=== PATIENT | male | born 1955 | race Caucasian/White ===

== ENCOUNTER → 2017-12-18 06:17 | Outpatient (CLI) | payer OTHER, SELFPAY ==
--- NOTE | 2017-12-18 12:32 | STRESSREP_ITS ---
Stress Test Report Pharmacologic myocardial perfusion stress test. 61 year old and with a history of chest pain and hypertension. Stress protocol: Resting EKG demonstrates sinus bradycardia with a rate of 44 bpm. Resting blood pressure is 148/80 mmHg. 0.4 mg of regadenoson was infused per usual protocol. Continuous EKG monitoring was performed. At rest T-wave inversions were noted in leads II, III and aVF V5 and V6. During infusion T-wave inversions persisted. There were no ST changes however noted to suggest ischemia. The resting blood pressure is 148/80 with a final blood pressure 138/ 88 mmHg. Myocardial perfusion protocol.: 11.5 mCi of technetium 99m sestamibi was injected at rest. 0.4 mg regadenoson was infused per usual protocol. At peak infusion 34.0 mCi of technetium 99m sestamibi was injected. Stress images were obtained stress and rest images were reconstructed and compared in the short axis vertical long and horizontal long axis. Perfusion SPECT analysis: Review of the stress images demonstrate a mildly dilated cardiac silhouette size. The septum anterior wall and lateral wall appear to be well perfused. The basal to mid inferior wall and inferolateral wall have reduced perfusion. The resting images demonstrate improved perfusion in the distal inferolateral wall suggesting a moderate amount of ischemia. Possible fixed basal infarct is noted. Gated SPECT analysis Gated ejection fraction is 38%. Conclusion: Abnormal pharmacologic myocardial perfusion stress test with evidence of inferolateral ischemia. Basal inferior infarct noted. Cardiomyopathy present.
== END ==
PROVIDERS: Family Provider Family Medicine; PCP Family Medicine; Visit Provider Internal Medicine Cardiovascular Disease
DX: I25.10 Atherosclerotic heart disease of native coronary artery without angina pectoris (principal)
CPT/HCPCS: 78452; 93017; A9500; A4216; J2785

== ENCOUNTER 2018-02-20 14:00 | Day surgery (SDC) | payer OTHER, SELFPAY ==
[2018-02-20] VITALS (7 sets, daily range): BP systolic 103–139; BP diastolic 44–78; PULSE 51–54; RESP 16; TEMP 36.6–37.2; O2SAT 95–99; BMI 25.2
--- NOTE | 2018-02-20 14:15 | EKG12_ITS ---
Test Reason : PREOP Blood Pressure : / mmHG Vent. Rate : 055 BPM Atrial Rate : 055 BPM P-R Int : 150 ms QRS Dur : 112 ms QT Int : 484 ms P-R-T Axes : 015 -18 133 degrees QTc Int : 463 ms Sinus bradycardia Inferior infarct , age undetermined T wave abnormality, consider lateral ischemia Abnormal ECG No previous ECGs available Confirmed by WINIFRED FINE, DIPAK ([id number]), acquisition editor ANGELIKA BAKER ([id number]) on 02/22/2018 2:24:16 PM Referred By: JACY Confirmed By:DIPAK VITALE MD
[2018-02-20 14:33] LABS: Hematocrit 46.4 % (40-54); Hemoglobin 15.9 g/dl (13.0-16.5); Mean Corp Hgb Conc 34.3 g/gl (32-36); Mean Corpuscular Hgb 31.5 pg (27.0-32.0); Mean Corpuscular Volume 91.9 fL (80-94); Mean Platelet Vol. 9.8 fl (6.2-12.0); Platelet Count 310 K/mm3 (150-450); RBC Distribution Width CV 13.3 % (11.6-14.6); RBC Distribution Width SD 44.4 fl (35.1-43.9); Red Blood Count 5.05 M/mm3 (4.6-6.2); White Blood Count 12.8 K/mm3 (4.4-11.0)
[2018-02-20 14:34] LABS: Scan Indicated on CBC? Y/N NO
[2018-02-20 15:02] LABS: Anion Gap 6 (5-15); BUN 13 mg/dL (7-18); BUN/Creat Ratio 12.5 RATIO (10-20); Calcium,Total 9.6 mg/dL (8.5-10.1); Chloride 105 mmol/L (98-107); Creatinine, Serum 1.04 mg/dL (0.70-1.30); EST Glomerular Filtration Rate 77 mL/min (>60); Est Glom Filt Rate - Afr Amer 93 mL/min (>60); Glucose 101 mg/dL (74-106); Potassium 4.1 mmol/L (3.5-5.1); Sodium Level 140 mmol/L (136-145)
[2018-02-20] MEDS: Clindamycin 900 MG/50 ML BAG 75 MG IV (16:00)
--- NOTE | 2018-02-20 16:19 | PCM.OP.BLANK ---
Operative Report Operative report on Tripp Smith Operative procedure incision and drainage left peritonsillar abscess Operative diagnosis left peritonsillar abscess Operative diagnosis left peritonsillar abscess Anaesthesia ENDOTRACHEAL GENERAL. Procedure the patient was placed supine on the operating room table and after satisfactory endotracheal general anesthesia had been obtained sterile drapes were applied and the patient draped in the usual sterile manner. A Benji-Lavell mouth gag was placed in the oral cavity and the tongue retracted anteriorly. The hypopharynx was examined. A large left peritonsillar abscess was identified. The uvula was noted to be deviated to the right. With a 11 blade a left peritonsillar incision was made and with a curved hemostat the abscess cavity was entered. The cavity was enlarged and immediately thick purulent material appeared to emanate from the abscess site. Specimens were obtained for culture and sensitivity for aerobic and anaerobic bacteria. The abscess cavity was thoroughly rinsed with saline. Bleeding edges of the incision site were cauterized with the Bovie. Hypopharynx was suctioned and the procedure was considered terminated and the patient extubated and returned to the recovery room in satisfactory condition. Bruce García md
== END 2018-02-20 18:12 | disposition home or self-care (01) ==
LOC: SDC 14:02 → AC 14:06
PROVIDERS: Family Provider Family Medicine; PCP Family Medicine; Visit Provider Otolaryngology Otolaryngology/Facial Plastic Surgery
PROC: 0C9PXZZ Drainage of Tonsils, External Approach (ICD-10-PCS; CPT 42700; principal; 2018-02-20 15:55)
DX: J36 Peritonsillar abscess (principal); I25.10 Atherosclerotic heart disease of native coronary artery without angina pectoris; I10 Essential (primary) hypertension; Z87.891 Personal history of nicotine dependence
CPT/HCPCS: 42700; 80048; 85027; 87070; 87075; 87205; 93005; J7120

== ENCOUNTER 2018-06-15 14:07 | Inpatient (IN) | payer OTHER, SELFPAY ==
[2018-06-15] VITALS (9 sets, daily range): BP systolic 134–180; BP diastolic 60–84; PULSE 39–50; RESP 12–18; TEMP 36.8–37.1; O2SAT 97–99; BMI 25.4; BMI 25.0
[2018-06-15 16:38] LABS: Absolute Lymphocyte Count 2.96 X10^3/ul (0.83-4.51); Absolute Neutrophil Count 6.3 X10^3/uL (2.0-7.7); Basophil# 0.03 X10^3/uL; Basophil% 0.3 % (0-1); Eosinophil# 0.15 X10^3/uL; Eosinophils% 1.5 % (0-5); Hematocrit 43.6 % (40-54); Lymphocyte # 2.96 X10^3/ul (4.0); Mean Corp Hgb Conc 34.4 g/gl (32-36); Mean Corpuscular Hgb 31.7 pg (27.0-32.0); Mean Corpuscular Volume 92.2 fL (80-94); Mean Platelet Vol. 10.7 fl (6.2-12.0); Monocyte# 0.75 X10^3/uL; Monocyte% 7.3 % (0-10); Neutrophil # 6.31 X10^3/uL (2.7-7.7); Neutrophil % 61.7 % (47-70); POSITIVE COUNT NO; POSITIVE DIFFERENTIAL NO; POSITIVE MORPHOLOGY NO; Platelet Count 206 K/mm3 (150-450); RBC Distribution Width CV 13.5 % (11.6-14.6); RBC Distribution Width SD 44.2 fl (35.1-43.9); Red Blood Count 4.73 M/mm3 (4.6-6.2); White Blood Count 10.2 K/mm3 (4.4-11.0)
[2018-06-15 16:40] LABS: International Normalized Ratio 1.1; Prothrombin Time (Protime)PT. 13.7 SECONDS (11.7-14.9)
[2018-06-15 16:41] LABS: Partial Thromboplast Time 27.7 Seconds (24.1-36.2)
[2018-06-15 16:43] LABS: Anion Gap 9 (5-15); BUN 17 mg/dL (7-18); BUN/Creat Ratio 18.2 RATIO (10-20); Calcium,Total 8.9 mg/dL (8.5-10.1); Chloride 108 mmol/L (98-107); Creatinine, Serum 0.93 mg/dL (0.70-1.30); EST Glomerular Filtration Rate 87 mL/min (>60); Est Glom Filt Rate - Afr Amer 105 mL/min (>60); Glucose 89 mg/dL (74-106); Potassium 3.9 mmol/L (3.5-5.1); Sodium Level 146 mmol/L (136-145)
--- NOTE | 2018-06-15 19:29 | PCM.HP.STD ---
Problem List (1) HTN (hypertension) Status: Chronic Qualifiers: Hypertension type: essential hypertension Qualified Code(s): I10 - Essential (primary) hypertension (2) Aortic disease Status: Chronic (3) Bladder cancer Status: Chronic Qualifiers: Bladder location: unspecified site Qualified Code(s): C67.9 - Malignant neoplasm of bladder, unspecified (4) CVA (cerebral vascular accident) Status: Acute Qualifiers: CVA mechanism: unspecified Qualified Code(s): I63.9 - Cerebral infarction, unspecified History of Present Illness Date of Admission: 06/15/18 Chief Complaint: Dizziness, balance issues. 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 Patient returned home yesterday and noted ongoing RUE paresthesias which prompted evaluation in the ED for concern of pinched nerve. Upon ED presentation he was noted to have mild R nasolabial fold flattening which he and his spouse had not noted. In the ED work-up included T 98.7, heart rate 49, BP 147/74, respiratory rate 18, 99% on room air, CBC unremarkable, coags unremarkable, BMP with sodium 146, chloride 108 otherwise unremarkable, Chest x-ray with no acute process with noted endovascular graft device in the descending thoracic aorta with midline sternotomy wires and surgical clips in the right supraclavicular region with mild cardiomegaly, CT head with no acute findings but noted prior lacunar infarct of the right thalamus. Past Medical History Past Medical History (Chronic Problems): Chronic Problems HTN (hypertension) (Chronic) Aortic disease (Chronic) Bladder cancer (Chronic) Allergies acetaminophen [From Percocet] Allergy (Verified 06/15/18 14:10) Unknown oxycodone [From Percocet] Allergy (Verified 06/15/18 14:10) Unknown Home Medications: Ambulatory Orders Medication Instructions Recorded Acebutolol HCl [Sectral] 200 mg PO BID 06/15/18 Aspirin [Aspirin, Baby] 81 mg PO DAILY@0800 06/15/18 Losartan Potassium [Cozaar] 25 mg PO BID 06/15/18 traZODone [Desyrel] 100 mg PO QHS PRN 06/15/18 Surgical History: - - Aortic dissection repair, tonsillar abscess I&D. Psychiatric History: No pertinent psych hx Lives: Spouse/ Significant Other Smoking Status: Former smoker - Quit approximately 8 years prior, 1/2-1 pack per day cigarette tobacco usage history. Tobacco Use: Non-smoker Alcohol: None Drugs: None - *Family History Maternal History Items: - - Patient notes a maternal family history of heart disease, hypertension, history of VA. Paternal History Items: - - Patient notes a paternal family history of heart disease and hypertension. Review of Systems Constitutional: Denies: Chills, Fever, Weight Change HEENT: Denies: Head Aches, Sinus Congestion, Sinus Drainage Cardiovascular: Denies: Chest Pain, Palpitations Respiratory: Denies: Cough, Shortness of breath at rest, Sputum production Gastrointestinal: Denies: Abdominal Pain, Nausea, Vomiting Genitourinary: Denies: Dysuria Musculoskeletal: Reports: Neck Pain. Denies: Joint Pain, Joint Tenderness Skin: Denies: Rash, Wounds Neurological: Reports: Balance problems, Focal weakness, Incoordination, Numbness, Tingling Psychiatric: Denies: Anxiety, Depression, Homicidal Ideations, Suicidal Ideations Hematologic/ Lymphatic: Denies: Easy Bruising, Easy Bleeding VTE Information - Inpt Only VTE Present on Admission: No VTE Mechan Device Prophylaxis: SCD's VTE Pharm Prophylaxis ordered?: Yes Patient Problems: Active and Suspected Problems CVA (cerebral vascular accident) (Acute) Subjective: Seated upright in the ED, no acute distress, notes ongoing paresthesias to the right upper extremity otherwise no acute complaints. Objective: Physical Examination: General: awake, alert, oriented x 3 and cooperative, seated upright in the ED bed in no apparent distress. Skin: normal color, turgor, no icterus, cyanosis. HEENT: AT/NC, EOMI, PERRLA, MMM, no carotid bruits or JVD noted, noted mild R flattening nasolabial fold that corrects with smile. Lungs: CTA bilaterally, moderate effort, mild decrease BL bases, no rales, ronchi or wheezing. Heart: Bradycardic with regular rhythm; no gallop, rub audible. Abdomen: soft, NTTP, ND, normal BS, no HSM. Extremities: no cyanosis, clubbing, or edema. Neurological: patient awake, alert, oriented x 3; cognitive function intact; pupils equally reactive to light and accomodation; cranial nerves II-XII grossly normal except noted mild R flattened nasolabial fold corrective with smiling, subjective decreased sensation paresthesias to the right upper extremity, moving all 4 extremities, no focal deficits, strength preserved, FTN/HTS intact, negative babinski. Psychiatric: affect appears normal, no acute evidence of depressive or anxiety feelings. - Physical Exam Vital Signs Temp Pulse Resp BP Pulse Ox 98.7 F 50 L 15 157/76 H 97 06/15/18 14:08 06/15/18 19:15 06/15/18 19:15 06/15/18 19:15 06/15/18 19:15 Oxygen Delivery Method Room Air Weight: 172 lb Body Mass Index (BMI) 25.4 Laboratory Tests Past 24 Hrs 06/15/18 06/15/18 06/15/18 16:19 16:19 16:19 WBC 10.2 RBC 4.73 Hgb 15.0 Hct 43.6 MCV 92.2 MCH 31.7 MCHC 34.4 RDW 13.5 RDW Differential 44.2 H Plt Count 206 MPV 10.7 Immature Gran % (Auto) 0.200 Neut % (Auto) 61.7 Lymph % (Auto) 29.0 Whitman % (Auto) 7.3 Eos % (Auto) 1.5 Baso % (Auto) 0.3 Absolute Neuts (auto) 6.3 Absolute Lymphs (auto) 2.96 Total Counted Not Reportable PT 13.7 INR 1.1 APTT 27.7 Sodium 146 H Potassium 3.9 Chloride 108 H Carbon Dioxide 29.0 Anion Gap 9 BUN 17 Creatinine 0.93 Estim Creat Clear Calc 81.30 Est GFR (MDRD) Af Amer 105 Est GFR (MDRD) Non-Af 87 BUN/Creatinine Ratio 18.2 Glucose 89 Calcium 8.9 Assessment/Plan All Active Problems CVA (cerebral vascular accident) (Acute) The patient is a 62 y/o M w/ PMHx: HTN, Hx Bladder CA, 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 (1) Transient R Sided Weakness, Ataxia and Mild R facial droop concerning for CVA w/ Prior CT Evidence CVA: In the ED work-up included CBC w/ no acute findings, BMP w/ acute findings, Chest x-ray with no acute process with noted endovascular graft device in the descending thoracic aorta with midline sternotomy wires and surgical clips in the right supraclavicular region with mild cardiomegaly, CT head with no acute findings but noted prior lacunar infarct of the right thalamus. Will admit to PCU, will obtain MRI Brain, MRA Head and Neck, ECHO, PT/OT/Speech/Nutrition evaluation per protocol. Will consult Neurology for evaluation. Given timeline will continue home BP regimen, maintain on asa and add plavix, initiate statin w/ AM FLP, fall precautions. Mag pending. TSH pending. (2) Hypertension: Continue home regimen including increased losartan, will decrease acebutolol given notable bradycardia w/ regimen alterations as needed to maintain goal < 140/90, PRN hydralazine. (3) Bradycardia: Noted bradycardia in the ED, will as noted decrease BB regimen, increase his ARB, maintain on telemetry. 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 Maintained on asa, adding plavix as noted and statin. He had been on statin prior but stopped. (5) Hx Bladder CA: Stable, remission. (6) Former Tobacco use: Encourage continued cessation. (7) DVT Prophylaxis: SCDs, lovenox. Code Visit Inpatient E&M: 04286 Init Hosp L3
--- NOTE | 2018-06-15 19:53 | ED.VISSUMM ---
- ER Visit Summary Date of Service: 06/15/18 Chief Complaint: Problems using right side and coordination problems with right upper extremity History of Present Illness: The patient is a 62 M who presents with right-sided neurologic symptoms that lasted to 3 hours on Sunday. He noticed symptoms when he got up from the restaurant seat to pay his bill. He did not present at that time since it resolved after 2 3 hours. He has a past medical history of hypertension and a type a aortic dissection at the root and a subsequent type a aortic dissection involving the arch. He is on no anticoagulant. He did not have a valve replacement. He denies prior history of stroke. He denies headache. He denies double vision, blurred vision loss of vision. I trouble speech or swallowing. He denies any history of trauma recently or remote. He denies any cardiac or respiratory symptoms. Please read written note for complete detail Physical Examination: Vital signs were noted and remarkable for an elevated blood pressure 147/74. Heart rate is 49. Monitor reveals a sinus bradycardia. He is on beta-shay. 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 NIH is 1 because of the facial droop. Trach is midline. There is no carotid bruit. Heart is regular without murmur, gallop or rub. Lungs are clear to auscultation. Abdomen soft nontender. Patient is alert and oriented ?3. Motor is 5 over 5. Sensory is intact. DTRs are symmetric with no clonus or Babinski sign. cranial nerves II through and VIII through XII are intact. Cerebellar testing is normal. Test Results: CT of the head reveals a lacunar infarct involving the right the limbus. CBC electro panel unremarkable. Coags unremarkable. Chest x-ray was obtained which reveals sternal wires and wires secondary to aortic repair. There is no acute pathology. There is evidence of cardiomegaly. Emergency Department Course and Treatment: Concern patient had a left hemispheric stroke. Stroke order set was initiated. Since the exact time of onset is unknown the time of onset is unknown. He was made n.p.o. He did pass his displeasure's test. Treatment Plan: Dr. Romero was contacted who is presently seeing patient for full admission for stroke workup Disposition: PCU full admission Impression: 1. Left hemispheric stroke with right-sided facial deficit 2. Prior right thalamic lacunar infarct 3. History of hypertension 4. History of type a Alexander dissection ?2 This note was generated with [employer] dictation software. It may contain incorrect words, spelling, and punctuation that were not noted in review of the chart prior to signing ED Disposition - Plan for ED Patient: Chief Complaint: Dizziness Referrals: Luis Manuel Escamilla MD [Primary Care Provider] -
--- NOTE | 2018-06-15 20:09 | NURSING ---
Called [facility] ED charge nurse, patient ok to come to floor.
[2018-06-15 21:11] LABS: Magnesium 2.1 mg/dL (1.6-2.6); Thyroid Stim Hormone (TSH) 2.43 uIU/mL (0.358-3.74)
[2018-06-15] MEDS: Atorvastatin Calcium 80 MG Tablet PO (21:55)
[2018-06-15] MEDS: Famotidine 20 MG Tablet PO (21:55)
[2018-06-15] MEDS: Aspirin 81 MG TAB.CHEW PO (21:55)
[2018-06-15] MEDS: 0.9% Normal Saline 1,000 ML 100 ML IV (21:55)
[2018-06-15] MEDS: Losartan Potassium 50 MG Tablet PO (21:55)
[2018-06-15] MEDS: 0.9% NaCl Peripheral Flush Adult/Peds IV (21:56)
[2018-06-16] VITALS (14 sets, daily range): BP systolic 143–165; BP diastolic 56–87; PULSE 42–54; RESP 14–18; TEMP 36.6–37.3; O2SAT 96–98; BMI 25.0
[2018-06-16 06:41] LABS: Cholesterol 145 mg/dL (200); High Density Lipoprotein 41 mg/dL; Triglycerides 140 mg/dL; Very Low Density Lipoprotein 28 mg/dL (5-40)
[2018-06-16 08:02] LABS: BUN 14 mg/dL (7-18); BUN/Creat Ratio 15.3 RATIO (10-20); Calcium,Total 8.5 mg/dL (8.5-10.1); Chloride 109 mmol/L (98-107); Creatinine, Serum 0.92 mg/dL (0.70-1.30); EST Glomerular Filtration Rate 89 mL/min (>60); Est Glom Filt Rate - Afr Amer 107 mL/min (>60); Estimated Creatinine Clearance 82.18 ml/min; Glucose 87 mg/dL (74-106); Potassium 3.7 mmol/L (3.5-5.1); Sodium Level 146 mmol/L (136-145)
[2018-06-16 08:03] LABS: Anion Gap 10 (5-15)
[2018-06-16] MEDS: Famotidine 20 MG Tablet PO ×2 (08:50→20:49)
[2018-06-16] MEDS: Enoxaparin 40 MG/0.4 ML Syringe SC (08:55)
[2018-06-16] MEDS: Aspirin 81 MG TAB.CHEW PO (08:55)
[2018-06-16] MEDS: Clopidogrel Bisulfate 75 MG Tablet PO (08:55)
--- NOTE | 2018-06-16 10:20 | PCM.PN.HOSP ---
Patient Problems: Active and Suspected Problems CVA (cerebral vascular accident) (Acute) Subjective: Patient seen and examined. He was asked admitted with a complaint of right-sided paresthesia and weakness in his right lower extremity as well as difficulty with coordination. Improved after about 2-3 hours. He was concerned about a pinched nerve and so he came in to the ED. CT of the head showed prior lacunar infarct of the right thalamus. He has been admitted and managed for TIA. Patient still complains of mild paresthesia in his right upper extremity which he thinks may be due to a pinched nerve as he has neck pain. However right lower extremity weakness has resolved. He denies any fever, chills, blurred vision, slurred speech, chest pain, abdominal pain, diarrhea or vomiting. 12 point review of systems was otherwise negative. Labs and vitals reviewed. Vitals/I&O's: Vital Signs Temp Pulse Resp BP Pulse Ox 98.1 F 43 L 16 153/67 H 96 06/16/18 08:30 06/16/18 08:30 06/16/18 08:30 06/16/18 08:30 06/16/18 08:30 Oxygen Delivery Method Room Air Weight: 171 lb 11.841 oz Body Mass Index (BMI) 25.0 Intake and Output for Last 24 Hours 06/14/18 06/15/18 06/16/18 23:59 23:59 23:59 Intake Total 324 / 324 706 / 706 Output Total 300 / 300 Balance 24 / 706 / 706 General: Alert, Oriented x3, Cooperative, No apparent distress HEENT: Atraumatic, PERRLA, EOMI, Normocephalic Oral: Moist Mucosa Neck: Supple, No JVD, Negative Carotid Bruits Lungs: Clear to auscultation, Normal air movement Cardiovascular: Regular rate, Regular Rhythm, Normal S1, Normal S2, - - grade 2 systolic murmur in aortic region Abdomen: Bowel Sounds Present, Soft, Non Tender, Non-Distended, No Hepato-splenomegaly Extremities: No clubbing, No cyanosis, No edema, Capillary Refill Less than 3 Seconds Skin: No rashes, No breakdown Musculoskeletal: No Tenderness to Palpation of Joints or Extremities Lymphatic: No Cervical, Supraclavicular, or Inguinal Adenopathy Neurological: Cranial nerves II-XII grossly intact, Neuro grossly intact, Motor Exam 5/5 strength throughout, Sensory exam intact to light touch and pain Psych/Mental Status: Normal Affect, Appropriate, Alert and oriented to time, place, person, mood and affect Laboratory Results 06/16/18 05:34: Triglycerides 140, Cholesterol 145, LDL Cholesterol 76, VLDL Cholesterol 28, HDL Cholesterol 41 06/16/18 05:34: Sodium 146 H, Potassium 3.7, Chloride 109 H, Carbon Dioxide 27.0, Anion Gap 10, BUN 14, Creatinine 0.92, Estim Creat Clear Calc 82.18, Est GFR (MDRD) Af Amer 107, Est GFR (MDRD) Non-Af 89, BUN/Creatinine Ratio 15.3, Glucose 87, Calcium 8.[address] 06/15/18 15:56 IMPRESSION: No acute abnormalities. Lacunar infarct of the right thalamus, otherwise negative. Electronically Signed: Spencer Santacruz MD at 18:47 EDT , Service support , Chest X-Ray 06/15/18 16:00 Current Medications Acebutolol HCl (Sectral) 100 mg PO BID [facility] Last Admin: 06/16/18 09:06 Dose: Not Given Al Hydroxide/Mg Hydroxide (Mylanta Ii) 30 ml PO Q6H PRN PRN PRN Reason: Gastric burning Aspirin (Aspirin, Baby) 81 mg PO DAILY@0800 [facility] Last Admin: 06/16/18 08:55 Dose: 81 mg Atorvastatin Calcium (Lipitor) 80 mg PO QHS [facility] Last Admin: 06/15/18 21:55 Dose: 80 mg Clopidogrel Bisulfate (Plavix) 75 mg PO DAILY [facility] Last Admin: 06/16/18 08:55 Dose: 75 mg Enoxaparin Sodium (Lovenox) 40 mg SC DAILY@1000 [facility] Last Admin: 06/16/18 08:55 Dose: 40 mg Famotidine (Pepcid) 20 mg PO BID [facility] Last Admin: 06/16/18 08:50 Dose: 20 mg Losartan Potassium (Cozaar) 50 mg PO BID [facility] Last Admin: 06/16/18 09:07 Dose: Not Given Magnesium Hydroxide (Milk Of Magnesia) 30 ml PO DAILY PRN PRN Reason: Constipation Nutritional Formula (Lactose Free) (Ensure Enlive) 120 ml PO 4X/DAY [facility] Last Admin: 06/16/18 08:53 Dose: Not Given Ondansetron HCl (Zofran) 4 mg IV Q8H PRN PRN PRN Reason: NAUSEA Promethazine HCl (Phenergan) 12.5 mg IV Q6H PRN PRN PRN Reason: NAUSEA/VOMITING Sodium Chloride () 5 - 30 ml IV UD PRN PRN Reason: SALINE FLUSH Last Admin: 06/15/18 21:56 Dose: 10 ml Trazodone HCl (Desyrel) 100 mg PO QHS PRN PRN PRN Reason: INSOMNIA Medical Necessity - Tobacco Use Smoking Status: Former smoker Tobacco Use: Non-smoker Assessment/Plan All Active Problems CVA (cerebral vascular accident) (Acute) 1. TIA Admitted with transient right-sided weakness and paresthesia. Also concern for mild right facial droop but this was not present at time I reviewed patient had likely resolved. Still complains of mild paresthesia right upper extremity which he attributes to possible pinched nerve as he has neck pain. CT only noted lacunar infarct of the right thalamus but stated no acute ischemic infarct. Has had midline sternotomy wires and surgical clips for endovascular graft device. Neurology consulted. MRI of the brain and MRA of the head and neck and echo ordered. PT OT and speech therapy on board. Fall Precautions. lipid panel WNL was on aspirin; plavix added. will start high intensity statin 2. Hypertension: BP poorly controlled. on beta shay; will hold o/a of bradycardia will contineu losartan prn hydralazine 3. Bradycardia: HR in 40s and 50s since admission. will hold acetabulol and monitor 4. History of aortic dissection s/p endovascular graft repair ~ 8 years ago at [facility] on aspirin. Plavix added as stated above. 5. Hypernatremia: Na is 146. patient asymptomatic. Will monitor 6. History of bladder cancer: s/p treatment; in remission. continue follow up on outpatient basis with urologist. 7. Nicotine dependence: counselled to quit. Nicotine patch 21mg daily. DVT prophylaxis: lovenox Code status: full code This note was generated with [employer] software. It may contain incorrect words, spelling, and punctuation that were not noted in checking the note before signing. Code Visit Inpatient E&M: 88172 Subs Hosp L3
--- NOTE | 2018-06-16 11:18 | PCM.CONS.GEN ---
Reason for Consult Date of Consultation: 06/16/18 Reason for Consultation: cva History of Present Illness: The patient is a 62 year old M with history as below, presented with right upper extremity paresthesias, now improved. symptoms started about 4 days ago, improved. reports severe stress. no snoring. quit tob eight yrs. report irregular heartbeat and has been noted to have low heart rate upon this hospitalization. last med change was 8 months ago due to low heart rate. 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 Patient returned home yesterday and noted ongoing RUE paresthesias which prompted evaluation in the ED for concern of pinched nerve. Upon ED presentation he was noted to have mild R nasolabial fold flattening which he and his spouse had not noted. In the ED work-up included T 98.7, heart rate 49, BP 147/74, respiratory rate 18, 99% on room air, CBC unremarkable, coags unremarkable, BMP with sodium 146, chloride 108 otherwise unremarkable, Chest x-ray with no acute process with noted endovascular graft device in the descending thoracic aorta with midline sternotomy wires and surgical clips in the right supraclavicular region with mild cardiomegaly, CT head with no acute findings but noted prior lacunar infarct of the right thalamus. Past Medical History Past Medical History (Chronic Problems): Chronic Problems HTN (hypertension) (Chronic) Aortic disease (Chronic) Bladder cancer (Chronic) Allergies acetaminophen [From Percocet] Allergy (Verified 06/15/18 14:10) Unknown oxycodone [From Percocet] Allergy (Verified 06/15/18 14:10) Unknown Home Medications: Ambulatory Orders Medication Instructions Recorded Acebutolol HCl [Sectral] 200 mg PO BID 06/15/18 Aspirin [Aspirin, Baby] 81 mg PO QHS 06/15/18 Losartan Potassium [Cozaar] 25 mg PO BID 06/15/18 traZODone [Desyrel] 100 mg PO QHS PRN 06/15/18 Surgical History: - - Aortic dissection repair, tonsillar abscess I&D. Psychiatric History: No pertinent psych hx Lives: Spouse/ Significant Other Smoking Status: Former smoker Tobacco Use: Non-smoker Alcohol: None Drugs: None - *Family History Maternal History Items: - - Patient notes a maternal family history of heart disease, hypertension, history of VT. Paternal History Items: - - Patient notes a paternal family history of heart disease and hypertension. Review of Systems Constitutional: Denies: Chills, Fever, Weight Change HEENT: Denies: Head Aches, Sinus Congestion, Sinus Drainage Cardiovascular: Denies: Chest Pain, Palpitations Respiratory: Denies: Cough, Shortness of breath at rest, Sputum production Gastrointestinal: Denies: Abdominal Pain, Nausea, Vomiting Genitourinary: Denies: Dysuria Musculoskeletal: Denies: Joint Pain, Joint Tenderness Skin: Denies: Rash, Wounds Neurological: Reports: Numbness, Tingling. Denies: Focal weakness Psychiatric: Reports: Anxiety. Denies: Depression, Homicidal Ideations, Suicidal Ideations Hematologic/ Lymphatic: Denies: Easy Bruising, Easy Bleeding Patient Problems: Active and Suspected Problems CVA (cerebral vascular accident) (Acute) - Physical Exam Neurological: Cranial nerves II-XII grossly intact, Deep Tendon Reflexes 2+/4 and Symmetrical, Neuro grossly intact, Motor Exam 5/5 strength throughout Psych/Mental Status: Normal Affect, Appropriate Vital Signs Temp Pulse Resp BP Pulse Ox 36.7 C 43 L 16 153/67 H 96 06/16/18 08:30 06/16/18 08:30 06/16/18 08:30 06/16/18 08:30 06/16/18 08:30 Oxygen Delivery Method Room Air Weight: 77.9 kg Body Mass Index (BMI) 25.0 Intake and Output for Last 24 Hours 06/14/18 06/15/18 06/16/18 23:59 23:59 23:59 Intake Total 324 / 324 706 / 706 Output Total 300 / 300 Balance 24 / 706 / 706 Laboratory Tests Past 24 Hrs 06/16/18 06/16/18 05:34 05:34 Sodium 146 H Potassium 3.7 Chloride 109 H Carbon Dioxide 27.0 Anion Gap 10 BUN 14 Creatinine 0.92 Estim Creat Clear Calc 82.18 Est GFR (MDRD) Af Amer 107 Est GFR (MDRD) Non-Af 89 BUN/Creatinine Ratio 15.3 Glucose 87 Calcium 8.5 Triglycerides 140 Cholesterol 145 LDL Cholesterol 76 VLDL Cholesterol 28 HDL Cholesterol 41 MRI reviewed. There is a small cortical left peripheral MCA distribution infarct. Current Medications Generic Name Dose Route Start Last Admin Trade Name Freq PRN Reason Stop Dose Admin Acebutolol HCl 100 mg 06/15/18 22:00 06/16/18 09:06 Sectral PO Not Given BID ROMAN Al Hydroxide/Mg Hydroxide 30 ml 06/15/18 20:20 Mylanta Ii PO Q6H PRN PRN Gastric burning Aspirin 81 mg 06/16/18 08:00 06/16/18 08:55 Aspirin, Baby PO 81 mg DAILY@0800 ROMAN Administration Atorvastatin Calcium 80 mg 06/15/18 22:00 06/15/18 21:55 Lipitor PO 80 mg QHS ROMAN Administration Clopidogrel Bisulfate 75 mg 06/16/18 10:00 06/16/18 08:55 Plavix PO 75 mg DAILY ROMAN Administration Enoxaparin Sodium 40 mg 06/16/18 10:00 06/16/18 08:55 Lovenox SC 40 mg DAILY@1000 ROMAN Administration Famotidine 20 mg 06/15/18 22:00 06/16/18 08:50 Pepcid PO 20 mg BID ROMAN Administration Losartan Potassium 50 mg 06/15/18 22:00 06/16/18 09:07 Cozaar PO Not Given BID ROMAN Magnesium Hydroxide 30 ml 06/15/18 20:20 Milk Of Magnesia PO DAILY PRN Constipation Nutritional Formula (Lactose Free) 120 ml 06/16/18 10:00 06/16/18 08:53 Ensure Enlive PO Not Given 4X/DAY [facility] Ondansetron HCl 4 mg 06/15/18 20:20 Zofran IV Q8H PRN PRN NAUSEA Promethazine HCl 12.5 mg 06/15/18 20:20 Phenergan IV Q6H PRN PRN NAUSEA/VOMITING Sodium Chloride 5 - 30 ml 06/15/18 20:51 06/15/18 21:56 IV 10 ml UD PRN Administration SALINE FLUSH Trazodone HCl 100 mg 06/15/18 20:20 Desyrel PO QHS PRN PRN INSOMNIA Assessment/Plan All Active Problems CVA (cerebral vascular accident) (Acute) Impression: Small left cortical MCA distribution infarct by MRI PT/OT/speech evaluation echocardiogram as outpt Telemetry monitoring Change aspirin to Plavix Continue statin Blood pressure control: may be too hypotensive as op Outpt psg event monitor
--- NOTE | 2018-06-16 11:22 | CON.PCM_ITS ---
Reason for Consult Date of Consultation: 06/16/18 Reason for Consultation: cva History of Present Illness: The patient is a 62 year old M with history as below, presented with right upper extremity paresthesias, now improved. symptoms started about 4 days ago, improved. reports severe stress. no snoring. quit tob eight yrs. report irregular heartbeat and has been noted to have low heart rate upon this hospitalization. last med change was 8 months ago due to low heart rate. 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 Patient returned home yesterday and noted ongoing RUE paresthesias which prompted evaluation in the ED for concern of pinched nerve. Upon ED presentation he was noted to have mild R nasolabial fold flattening which he and his spouse had not noted. In the ED work-up included T 98.7, heart rate 49, BP 147/74, respiratory rate 18 , 99% on room air, CBC unremarkable, coags unremarkable, BMP with sodium 146, chloride 108 otherwise unremarkable, Chest x-ray with no acute process with noted endovascular graft device in the descending thoracic aorta with midline sternotomy wires and surgical clips in the right supraclavicular region with mild cardiomegaly, CT head with no acute findings but noted prior lacunar infarct of the right thalamus. Past Medical History Past Medical History (Chronic Problems): Chronic Problems HTN (hypertension) (Chronic) Aortic disease (Chronic) Bladder cancer (Chronic) Allergies acetaminophen [From Percocet] Allergy (Verified 06/15/18 14:10) Unknown oxycodone [From Percocet] Allergy (Verified 06/15/18 14:10) Unknown Home Medications: Ambulatory Orders Medication Instructions Recorded Acebutolol HCl [Sectral] 200 mg PO BID 06/15/18 Aspirin [Aspirin, Baby] 81 mg PO QHS 06/15/18 Losartan Potassium [Cozaar] 25 mg PO BID 06/15/18 traZODone [Desyrel] 100 mg PO QHS PRN 06/15/18 Surgical History: - - Aortic dissection repair, tonsillar abscess I&D. Psychiatric History: No pertinent psych hx Lives: Spouse/ Significant Other Smoking Status: Former smoker Tobacco Use: Non-smoker Alcohol: None Drugs: None - *Family History Maternal History Items: - - Patient notes a maternal family history of heart disease, hypertension, history of OR. Paternal History Items: - - Patient notes a paternal family history of heart disease and hypertension. Review of Systems Constitutional: Denies: Chills, Fever, Weight Change HEENT: Denies: Head Aches, Sinus Congestion, Sinus Drainage Cardiovascular: Denies: Chest Pain, Palpitations Respiratory: Denies: Cough, Shortness of breath at rest, Sputum production Gastrointestinal: Denies: Abdominal Pain, Nausea, Vomiting Genitourinary: Denies: Dysuria Musculoskeletal: Denies: Joint Pain, Joint Tenderness Skin: Denies: Rash, Wounds Neurological: Reports: Numbness, Tingling. Denies: Focal weakness Psychiatric: Reports: Anxiety. Denies: Depression, Homicidal Ideations, Suicidal Ideations Hematologic/ Lymphatic: Denies: Easy Bruising, Easy Bleeding Patient Problems: Active and Suspected Problems CVA (cerebral vascular accident) (Acute) - Physical Exam Neurological: Cranial nerves II-XII grossly intact, Deep Tendon Reflexes 2+/4 and Symmetrical, Neuro grossly intact, Motor Exam 5/5 strength throughout Psych/Mental Status: Normal Affect, Appropriate Vital Signs Temp Pulse Resp BP Pulse Ox 36.7 C 43 L 16 153/67 H 96 06/16/18 08:30 06/16/18 08:30 06/16/18 08:30 06/16/18 08:30 06/16/18 08:30 Oxygen Delivery Method Room Air Weight: 77.9 kg Body Mass Index (BMI) 25.0 Intake and Output for Last 24 Hours 06/14/18 06/15/18 06/16/18 23:59 23:59 23:59 Intake Total 324 / 324 706 / 706 Output Total 300 / 300 Balance 24 / 706 / 706 Laboratory Tests Past 24 Hrs 06/16/18 06/16/18 05:34 05:34 Sodium 146 H Potassium 3.7 Chloride 109 H Carbon Dioxide 27.0 Anion Gap 10 BUN 14 Creatinine 0.92 Estim Creat Clear Calc 82.18 Est GFR (MDRD) Af Amer 107 Est GFR (MDRD) Non-Af 89 BUN/Creatinine Ratio 15.3 Glucose 87 Calcium 8.5 Triglycerides 140 Cholesterol 145 LDL Cholesterol 76 VLDL Cholesterol 28 HDL Cholesterol 41 MRI reviewed. There is a small cortical left peripheral MCA distribution infarct. Current Medications Generic Name Dose Route Start Last Admin Trade Name Freq PRN Reason Stop Dose Admin Acebutolol HCl 100 mg 06/15/18 22:00 06/16/18 09:06 Sectral PO Not Given BID ROMAN Al Hydroxide/Mg Hydroxide 30 ml 06/15/18 20:20 Mylanta Ii PO Q6H PRN PRN Gastric burning Aspirin 81 mg 06/16/18 08:00 06/16/18 08:55 Aspirin, Baby PO 81 mg DAILY@0800 ROMAN Administration Atorvastatin Calcium 80 mg 06/15/18 22:00 06/15/18 21:55 Lipitor PO 80 mg QHS ROMAN Administration Clopidogrel Bisulfate 75 mg 06/16/18 10:00 06/16/18 08:55 Plavix PO 75 mg DAILY ROMAN Administration Enoxaparin Sodium 40 mg 06/16/18 10:00 06/16/18 08:55 Lovenox SC 40 mg DAILY@1000 ROMAN Administration Famotidine 20 mg 06/15/18 22:00 06/16/18 08:50 Pepcid PO 20 mg BID ROMAN Administration Losartan Potassium 50 mg 06/15/18 22:00 06/16/18 09:07 Cozaar PO Not Given BID ROMAN Magnesium Hydroxide 30 ml 06/15/18 20:20 Milk Of Magnesia PO DAILY PRN Constipation Nutritional Formula (Lactose Free) 120 ml 06/16/18 10:00 06/16/18 08:53 Ensure Enlive PO Not Given 4X/DAY [facility] Ondansetron HCl 4 mg 06/15/18 20:20 Zofran IV Q8H PRN PRN NAUSEA Promethazine HCl 12.5 mg 06/15/18 20:20 Phenergan IV Q6H PRN PRN NAUSEA/VOMITING Sodium Chloride 5 - 30 ml 06/15/18 20:51 06/15/18 21:56 IV 10 ml UD PRN Administration SALINE FLUSH Trazodone HCl 100 mg 06/15/18 20:20 Desyrel PO QHS PRN PRN INSOMNIA Assessment/Plan All Active Problems CVA (cerebral vascular accident) (Acute) Impression: Small left cortical MCA distribution infarct by MRI * PT/OT/speech evaluation * echocardiogram as outpt * Telemetry monitoring * Change aspirin to Plavix * Continue statin * Blood pressure control: may be too hypotensive as op * Outpt psg * event monitor
[2018-06-16] MEDS: Losartan Potassium 50 MG Tablet PO ×2 (12:28→20:49)
[2018-06-16] MEDS: Atorvastatin Calcium 80 MG Tablet PO (20:49)
[2018-06-17] VITALS (13 sets, daily range): BP systolic 145–156; BP diastolic 60–75; PULSE 34–53; RESP 14–16; TEMP 36.8; O2SAT 96–98; BMI 25.0
[2018-06-17 06:52] LABS: Absolute Lymphocyte Count 2.72 X10^3/ul (0.83-4.51); Absolute Neutrophil Count 4.6 X10^3/uL (2.0-7.7); Basophil# 0.03 X10^3/uL; Basophil% 0.4 % (0-1); Eosinophil# 0.17 X10^3/uL; Eosinophils% 2.1 % (0-5); Hematocrit 43.6 % (40-54); Hemoglobin 14.9 g/dl (13.0-16.5); Lymphocyte # 2.72 X10^3/ul (4.0); Lymphocyte % 32.9 % (19-41); Mean Corp Hgb Conc 34.2 g/gl (32-36); Mean Corpuscular Hgb 31.1 pg (27.0-32.0); Mean Platelet Vol. 11.1 fl (6.2-12.0); Monocyte# 0.75 X10^3/uL; Monocyte% 9.1 % (0-10); Neutrophil # 4.58 X10^3/uL (2.7-7.7); Neutrophil % 55.4 % (47-70); Platelet Count 191 K/mm3 (150-450); RBC Distribution Width CV 13.1 % (11.6-14.6); RBC Distribution Width SD 43.3 fl (35.1-43.9); Red Blood Count 4.79 M/mm3 (4.6-6.2); White Blood Count 8.3 K/mm3 (4.4-11.0)
[2018-06-17 06:54] LABS: POSITIVE COUNT NO; POSITIVE DIFFERENTIAL NO; POSITIVE MORPHOLOGY NO
[2018-06-17 07:17] LABS: Anion Gap 10 (5-15); BUN 17 mg/dL (7-18); BUN/Creat Ratio 19.6 RATIO (10-20); Calcium,Total 8.5 mg/dL (8.5-10.1); Chloride 108 mmol/L (98-107); Creatinine, Serum 0.87 mg/dL (0.70-1.30); EST Glomerular Filtration Rate 94 mL/min (>60); Est Glom Filt Rate - Afr Amer 114 mL/min (>60); Estimated Creatinine Clearance 86.91 ml/min; Glucose 90 mg/dL (74-106); Potassium 3.7 mmol/L (3.5-5.1); Sodium Level 143 mmol/L (136-145)
[2018-06-17] MEDS: Famotidine 20 MG Tablet PO ×2 (09:03→21:04)
[2018-06-17] MEDS: Aspirin 81 MG TAB.CHEW PO (09:04)
[2018-06-17] MEDS: Losartan Potassium 50 MG Tablet PO ×2 (09:04→21:04)
[2018-06-17] MEDS: Enoxaparin 40 MG/0.4 ML Syringe SC (09:04)
[2018-06-17] MEDS: Clopidogrel Bisulfate 75 MG Tablet PO (09:04)
--- NOTE | 2018-06-17 12:28 | PCM.PN.HOSP ---
Patient Problems: Active and Suspected Problems CVA (cerebral vascular accident) (Acute) Subjective: Patient has bradycardia. Heart rate dropped in the low 30s. Currently 53/min. On the conveyor monitor heart rate was 122 a day before yesterday. Acebutolol on hold Vitals/I&O's: Vital Signs Temp Pulse Resp BP Pulse Ox 98.2 F 53 L 16 149/75 H 97 06/17/18 08:45 06/17/18 11:09 06/17/18 08:45 06/17/18 08:45 06/17/18 08:45 Oxygen Delivery Method Room Air Weight: 171 lb 11.841 oz Body Mass Index (BMI) 25.0 Intake and Output for Last 24 Hours 06/15/18 06/16/18 06/17/18 23:59 23:59 23:59 Intake Total 324 / 324 2015 1040 / 1040 Output Total 300 / 300 Balance 2015 1040 / 1040 General: Alert, Oriented x3, Cooperative HEENT: Atraumatic, PERRLA, EOMI, Normocephalic Neck: Supple, No JVD, Negative Carotid Bruits Lungs: Clear to auscultation, Normal air movement, No rhonchi, No wheeze Cardiovascular: Normal S1, Normal S2, No murmurs, Irregular Rate - PVCs. Abdomen: Bowel Sounds Present, Soft, Non Tender, Non-Distended Extremities: No edema, Capillary Refill Less than 3 Seconds Skin: No rashes, No breakdown Musculoskeletal: No Tenderness to Palpation of Joints or Extremities Neurological: Cranial nerves II-XII grossly intact Psych/Mental Status: Normal Affect, Appropriate Laboratory Results 06/17/18 05:41: WBC 8.3, RBC 4.79, Hgb 14.9, Hct 43.6, MCV 91.0, MCH 31.1, MCHC 34.2, RDW 13.1, RDW Differential 43.3, Plt Count 191, MPV 11.1, Immature Gran % (Auto) 0.100, Neut % (Auto) 55.4, Lymph % (Auto) 32.9, [place] % (Auto) 9.1, Eos % (Auto) 2.1, Baso % (Auto) 0.4, Absolute Neuts (auto) 4.6, Absolute Lymphs (auto) 2.72, Total Counted Not Reportable 06/17/18 05:41: Sodium 143, Potassium 3.7, Chloride 108 H, Carbon Dioxide 25.0, Anion Gap 10, BUN 17, Creatinine 0.87, Estim Creat Clear Calc 86.91, Est GFR (MDRD) Af Amer 114, Est GFR (MDRD) Non-Af 94, BUN/Creatinine Ratio 19.6, Glucose 90, Calcium 8.5 Current Medications Acebutolol HCl (Sectral) 100 mg PO BID [facility] Last Admin: 06/17/18 09:04 Dose: Not Given Al Hydroxide/Mg Hydroxide (Mylanta Ii) 30 ml PO Q6H PRN PRN PRN Reason: Gastric burning Aspirin (Aspirin, Baby) 81 mg PO DAILY@0800 [facility] Last Admin: 06/17/18 09:04 Dose: 81 mg Atorvastatin Calcium (Lipitor) 80 mg PO QHS [facility] Last Admin: 06/16/18 20:49 Dose: 80 mg Clopidogrel Bisulfate (Plavix) 75 mg PO DAILY [facility] Last Admin: 06/17/18 09:04 Dose: 75 mg Enoxaparin Sodium (Lovenox) 40 mg SC DAILY@1000 [facility] Last Admin: 06/17/18 09:04 Dose: 40 mg Famotidine (Pepcid) 20 mg PO BID [facility] Last Admin: 06/17/18 09:03 Dose: 20 mg Losartan Potassium (Cozaar) 50 mg PO BID [facility] Last Admin: 06/17/18 09:04 Dose: 50 mg Magnesium Hydroxide (Milk Of Magnesia) 30 ml PO DAILY PRN PRN Reason: Constipation Ondansetron HCl (Zofran) 4 mg IV Q8H PRN PRN PRN Reason: NAUSEA Promethazine HCl (Phenergan) 12.5 mg IV Q6H PRN PRN PRN Reason: NAUSEA/VOMITING Sodium Chloride () 5 - 30 ml IV UD PRN PRN Reason: SALINE FLUSH Last Admin: 06/15/18 21:56 Dose: 10 ml Trazodone HCl (Desyrel) 100 mg PO QHS PRN PRN PRN Reason: INSOMNIA Medical Necessity - Tobacco Use Smoking Status: Former smoker Tobacco Use: Non-smoker Assessment/Plan All Active Problems CVA (cerebral vascular accident) (Acute) This is a 62-year-old gentleman with history of type. Aortic dissection at root and arch status post endovascular graft repair about 8 years ago and [facility], bladder cancer was admitted with right-sided paresthesia in her shoulder region and concern for mild right facial droop. Later, he noted right-sided paresthesia and difficulty with coordination for about 2-3 hours while he was on a motorcycle trip about 7-9 days ago prior to admission. Denied any other focal neurological symptoms including weakness, speech/language abnormality or change in vision. Facial droop/facial palsy was not performed on exam. 1. Small left cortical MCA distribution infarct: Patient is being admitted in PCU on conveyor monitor. MRI brain shows a small cortical acute infarct in left superior frontal and parietal lobes. No associated hemorrhage or mass-effect. MRA neck does not show convincing evidence for distal vertebral or carotid occlusion. MRI brain shows no evidence for intracranial large vessel occlusion or intracranial aneurysm. Stroke protocol with PT, OT and speech therapy. was on aspirin; plavix added. Lipid profile shows LDL 76, triglyceride 140, HDL 41; all within normal limit. TSH normal. high intensity statin 2. Hypertension: BP poorly controlled. on beta shay; will hold o/a of bradycardia contineu losartan prn hydralazine 3. Arrhythmia: Bradycardia with PVCs: The patient has a irregular pulse on palpation. Discussed with his orthotics prosthetics technician Dr. Faith and Principal Cyber Engineer ekg monitor, Dr. Spicer. The patient does not have history of A. fib. Previous EKG also shows sinus rhythm. 2D echo is pending. Plan: Need 30 days event monitor. hold acetabulol and monitor 4. History of aortic dissection s/p endovascular graft repair ~ 8 years ago at [facility] on aspirin. Plavix added as stated above. 5. Hypernatremia: Na is 146. patient asymptomatic. Will monitor 6. History of bladder cancer: s/p treatment; in remission. continue follow up on outpatient basis with urologist. 7. Nicotine dependence: counselled to quit. Nicotine patch 21mg daily. DVT prophylaxis: lovenox Code Visit Inpatient E&M: 616[address] [facility] L3
--- NOTE | 2018-06-17 12:41 | PN_ITS ---
Patient Problems: Active and Suspected Problems CVA (cerebral vascular accident) (Acute) Subjective: Patient has bradycardia. Heart rate dropped in the low 30s. Currently 53/min. On the secured entrance monitor heart rate was 122 a day before yesterday. Acebutolol on hold Vitals/I&O's: Vital Signs Temp Pulse Resp BP Pulse Ox 98.2 F 53 L 16 149/75 H 97 06/17/18 08:45 06/17/18 11:09 06/17/18 08:45 06/17/18 08:45 06/17/18 08:45 Oxygen Delivery Method Room Air Weight: 171 lb 11.841 oz Body Mass Index (BMI) 25.0 Intake and Output for Last 24 Hours 06/15/18 06/16/18 06/17/18 23:59 23:59 23:59 Intake Total 324 / 324 2015 1040 / 1040 Output Total 300 / 300 Balance 2015 1040 / 1040 General: Alert, Oriented x3, Cooperative HEENT: Atraumatic, PERRLA, EOMI, Normocephalic Neck: Supple, No JVD, Negative Carotid Bruits Lungs: Clear to auscultation, Normal air movement, No rhonchi, No wheeze Cardiovascular: Normal S1, Normal S2, No murmurs, Irregular Rate - PVCs. Abdomen: Bowel Sounds Present, Soft, Non Tender, Non-Distended Extremities: No edema, Capillary Refill Less than 3 Seconds Skin: No rashes, No breakdown Musculoskeletal: No Tenderness to Palpation of Joints or Extremities Neurological: Cranial nerves II-XII grossly intact Psych/Mental Status: Normal Affect, Appropriate Laboratory Results 06/17/18 05:41: WBC 8.3, RBC 4.79, Hgb 14.9, Hct 43.6, MCV 91.0, MCH 31.1, MCHC 34.2, RDW 13.1, RDW Differential 43.3, Plt Count 191, MPV 11.1, Immature Gran % (Auto) 0.100, Neut % (Auto) 55.4, Lymph % (Auto) 32.9, [place] % (Auto) 9.1, Eos % (Auto) 2.1, Baso % (Auto) 0.4, Absolute Neuts (auto) 4.6, Absolute Lymphs (auto ) 2.72, Total Counted Not Reportable 06/17/18 05:41: Sodium 143, Potassium 3.7, Chloride 108 H, Carbon Dioxide 25.0, Anion Gap 10, BUN 17, Creatinine 0.87, Estim Creat Clear Calc 86.91, Est GFR ( MDRD) Af Amer 114, Est GFR (MDRD) Non-Af 94, BUN/Creatinine Ratio 19.6, Glucose 90, Calcium 8.5 Current Medications Acebutolol HCl (Sectral) 100 mg PO BID [facility] Last Admin: 06/17/18 09:04 Dose: Not Given Al Hydroxide/Mg Hydroxide (Mylanta Ii) 30 ml PO Q6H PRN PRN PRN Reason: Gastric burning Aspirin (Aspirin, Baby) 81 mg PO DAILY@0800 [facility] Last Admin: 06/17/18 09:04 Dose: 81 mg Atorvastatin Calcium (Lipitor) 80 mg PO QHS [facility] Last Admin: 06/16/18 20:49 Dose: 80 mg Clopidogrel Bisulfate (Plavix) 75 mg PO DAILY [facility] Last Admin: 06/17/18 09:04 Dose: 75 mg Enoxaparin Sodium (Lovenox) 40 mg SC DAILY@1000 [facility] Last Admin: 06/17/18 09:04 Dose: 40 mg Famotidine (Pepcid) 20 mg PO BID [facility] Last Admin: 06/17/18 09:03 Dose: 20 mg Losartan Potassium (Cozaar) 50 mg PO BID [facility] Last Admin: 06/17/18 09:04 Dose: 50 mg Magnesium Hydroxide (Milk Of Magnesia) 30 ml PO DAILY PRN PRN Reason: Constipation Ondansetron HCl (Zofran) 4 mg IV Q8H PRN PRN PRN Reason: NAUSEA Promethazine HCl (Phenergan) 12.5 mg IV Q6H PRN PRN PRN Reason: NAUSEA/VOMITING Sodium Chloride () 5 - 30 ml IV UD PRN PRN Reason: SALINE FLUSH Last Admin: 06/15/18 21:56 Dose: 10 ml Trazodone HCl (Desyrel) 100 mg PO QHS PRN PRN PRN Reason: INSOMNIA Medical Necessity - Tobacco Use Smoking Status: Former smoker Tobacco Use: Non-smoker Assessment/Plan All Active Problems CVA (cerebral vascular accident) (Acute) This is a 62-year-old gentleman with history of type. Aortic dissection at root and arch status post endovascular graft repair about 8 years ago and [facility], bladder cancer was admitted with right-sided paresthesia in her shoulder region and concern for mild right facial droop. Later, he noted right-sided paresthesia and difficulty with coordination for about 2-3 hours while he was on a motorcycle trip about 7-9 days ago prior to admission. Denied any other focal neurological symptoms including weakness, speech/language abnormality or change in vision. Facial droop/facial palsy was not performed on exam. 1. Small left cortical MCA distribution infarct: Patient is being admitted in PCU on secured entrance monitor. MRI brain shows a small cortical acute infarct in left superior frontal and parietal lobes. No associated hemorrhage or mass-effect. MRA neck does not show convincing evidence for distal vertebral or carotid occlusion. MRI brain shows no evidence for intracranial large vessel occlusion or intracranial aneurysm. Stroke protocol with PT, OT and speech therapy. * was on aspirin; plavix added. Lipid profile shows LDL 76, triglyceride 140, HDL 41; all within normal limit. TSH normal. * high intensity statin * 2. Hypertension: * BP poorly controlled. * on beta shay; will hold o/a of bradycardia * contineu losartan * prn hydralazine 3. Arrhythmia: Bradycardia with PVCs: The patient has a irregular pulse on palpation. Discussed with his bulk sealer Dr. Faith and Well Surveying Engineer curriculum and instruction director , Dr. Spicer. The patient does not have history of A. fib. Previous EKG also shows sinus rhythm. 2D echo is pending. Plan: Need 30 days event monitor. * hold acetabulol and monitor 4. History of aortic dissection * s/p endovascular graft repair ~ 8 years ago at [facility] * on aspirin. Plavix added as stated above. 5. Hypernatremia: Na is 146. patient asymptomatic. Will monitor 6. History of bladder cancer: s/p treatment; in remission. continue follow up on outpatient basis with urologist. 7. Nicotine dependence: counselled to quit. Nicotine patch 21mg daily. DVT prophylaxis: lovenox Code Visit Inpatient E&M: [id number] [facility] L3
[2018-06-17] MEDS: Atorvastatin Calcium 80 MG Tablet PO (21:04)
[2018-06-18 03:00] VITALS: PULSE 42
[2018-06-18 03:45] VITALS: BP 134/47; PULSE 41; RESP 16; TEMP 36.9; O2SAT 96
[2018-06-18 07:00] VITALS: PULSE 36
[2018-06-18 09:40] VITALS: BP 154/69; PULSE 47; RESP 16; TEMP 36.9; O2SAT 97
[2018-06-18] MEDS: Losartan Potassium 50 MG Tablet PO (09:45)
[2018-06-18] MEDS: Enoxaparin 40 MG/0.4 ML Syringe SC (09:45)
[2018-06-18] MEDS: Clopidogrel Bisulfate 75 MG Tablet PO (09:45)
[2018-06-18] MEDS: Famotidine 20 MG Tablet PO (09:45)
[2018-06-18] MEDS: Aspirin 81 MG TAB.CHEW PO (09:45)
--- NOTE | 2018-06-18 10:37 | CASEMGMT ---
RN CM Assessment completed. DC Plan: Home [facility] 1, PT/OT ST documenting no need for further therapy. is able to assist @ home. No needs identified. Ana MONTGOMERYN RN ACM
[2018-06-18 11:04] VITALS: PULSE 54
[2018-06-18 11:24] VITALS: BMI 25.0
--- NOTE | 2018-06-18 11:50 | PCM.DC.SUM ---
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 Later, he noted right-sided paresthesia and difficulty with coordination for about 2-3 hours while he was on a motorcycle trip about 7-9 days ago prior to admission. Denied any other focal neurological symptoms including weakness, speech/language abnormality or change in vision. Facial droop/facial palsy was not found on exam. Seen and examined today General: Alert, Oriented x3, Cooperative HEENT: Atraumatic, PERRLA, EOMI, Normocephalic Neck: Supple, No JVD, Negative Carotid Bruits Lungs: Clear to auscultation, Normal air movement, No rhonchi, No wheeze Cardiovascular: Normal S1, Normal S2, No murmurs, Irregular Rate -multiple PVCs and pulses bigeminy. Abdomen: Bowel Sounds Present, Soft, Non Tender, Non-Distended Extremities: No edema, Capillary Refill Less than 3 Seconds Skin: No rashes, No breakdown Musculoskeletal: No Tenderness to Palpation of Joints or Extremities Neurological: Cranial nerves II-XII grossly intact Psych/Mental Status: Normal Affect, Appropriate The overall hospital course and management as follows: 1. Small left cortical MCA distribution infarct: Patient is being admitted in PCU on equipment monitor phototypesetting. MRI brain shows a small cortical acute infarct in left superior frontal and parietal lobes. No associated hemorrhage or mass-effect. MRA neck does not show convincing evidence for distal vertebral or carotid occlusion. MRI brain shows no evidence for intracranial large vessel occlusion or intracranial aneurysm. Stroke protocol with PT, OT and speech therapy. was on aspirin; plavix added. Lipid profile shows LDL 76, triglyceride 140, HDL 41; all within normal limit. TSH normal. high intensity statin The patient is discharged on Plavix and atorvastatin as per neurologist recommendation. 2. Hypertension: BP poorly controlled. on beta shay; will hold o/a of bradycardia contineu losartan prn hydralazine 3. Arrhythmia: Bradycardia with PVCs: The patient has a irregular pulse on palpation. Discussed with his cinema or theatre manager Dr. Faith and Lead Mechanical Engineer manager control, Dr. Spicer. The patient does not have history of A. fib. Previous EKG also shows sinus rhythm. 2D echo is pending. Plan: Need 30 days event monitor. Acebutolol was held during hospital stay and later on changed to metoprolol at discharge. Metoprolol 12.5 mg twice daily with holding parameters less than 60/min. 2D echo was done but report is not available. 4. History of aortic dissection s/p endovascular graft repair ~ 8 years ago at [facility] 5. Hypernatremia: Na is 146. patient asymptomatic. Resolved 6. History of bladder cancer: s/p treatment; in remission. continue follow up on outpatient basis with urologist. 7. Nicotine dependence: counselled to quit. Nicotine patch 21mg daily. DVT prophylaxis: lovenox Discharge meds reconciliation done. Follow-up instructions given. Patient was discharged in order to collect Holter monitor before [address] Faith in 1-2 weeks. Follow with PCP. Total time spent, exact 35 minutes on discharge meds reconciliation, examination, review of imaging and blood test and discussion with the patient and his on follow-up instructions. Home Medications: Medications to take at Discharge Losartan Potassium [Cozaar] 25 mg PO BID 06/15/18 traZODone [Desyrel] 100 mg PO QHS PRN 06/15/18 Atorvastatin Calcium 40 mg PO DAILY #30 tab MDD AT BED TIME 06/18/18 Clopidogrel Bisulfate [Plavix] 75 mg PO DAILY #30 tab 06/18/18 Metoprolol Tartrate 12.5 mg PO BID #60 tab 06/18/18 Following Prescrptions Were Given to Patient: Atorvastatin Calcium 40 mg PO DAILY #30 tab MDD AT BED TIME Clopidogrel Bisulfate [Plavix] 75 mg PO DAILY #30 tab Metoprolol Tartrate 12.5 mg PO BID #60 tab Other Amb Orders: Cardiac Holter Monitor/Day [[facility]] Location: None Selected Primary Care Physician: Luis Manuel Escamilla MD [Primary Care Provider] - Medical Necessity - Tobacco Use Smoking Status: Former smoker Tobacco Use: Non-smoker Meaningful Use Info Meaningful Use Diagnoses (Choose all that apply): Ischemic CVA - CVA Therapy Assessed for PT,OT and/or ST?: Yes - Ischemic Stroke Antithrombotic order at d/c?: Yes Dx of Atrial fib/flutter?: No Anticoagulant at discharge?: Yes Statins at discharge?: Yes Primary Dx Acute Ischemic CVA?: Yes IV tPA ordered during stay?: No Reason IV t-PA not ordered: Procedure not Indicated - NIHSS 0 Code Visit Inpatient E&M: 65404 Disch Hosp
--- NOTE | 2018-06-18 11:52 | PCM.DC ---
- Discharge Diagnoses Current Active Problems: Current Active and Chronic Problems HTN (hypertension) (Chronic) Aortic disease (Chronic) Bladder cancer (Chronic) CVA (cerebral vascular accident) (Acute) You will use the following diet at home:: Cardiac Additional Instructions: Need 30 day event monitor for atrial dysrhythmia; approved by Dr. Rojas Allergies/Adverse Reactions: Allergies acetaminophen [From Percocet] Allergy (Verified 06/15/18 14:10) Unknown oxycodone [From Percocet] Allergy (Verified 06/15/18 14:10) Unknown Medications to take at Discharge Losartan Potassium [Cozaar] 25 mg PO BID 06/15/18 traZODone [Desyrel] 100 mg PO QHS PRN 06/15/18 Atorvastatin Calcium 40 mg PO DAILY #30 tab MDD AT BED TIME 06/18/18 Clopidogrel Bisulfate [Plavix] 75 mg PO DAILY #30 tab 06/18/18 Metoprolol Tartrate 12.5 mg PO BID #60 tab 06/18/18 The following prescriptions were given: Atorvastatin Calcium 40 mg PO DAILY #30 tab MDD AT BED TIME Clopidogrel Bisulfate [Plavix] 75 mg PO DAILY #30 tab Metoprolol Tartrate 12.5 mg PO BID #60 tab Primary Care Physician: Luis Manuel Escamilal MD [Primary Care Provider] - Test Results: Test results from this visit will be discussed in further detail at your follow-up appointment, if applicable.
== END 2018-06-18 14:05 | disposition home or self-care (01) | DRG 65 ==
LOC: ED 16:39 → PCU 20:07
PROVIDERS: Student in an Organized Health Care Education/Training Program; Admitting Provider Family Medicine; Emergency Provider Emergency Medicine; Family Provider Family Medicine; PCP Family Medicine; Visit Provider Internal Medicine
DX: I63.512 Cerebral infarction due to unspecified occlusion or stenosis of left middle cerebral artery (principal); E87.0 Hyperosmolality and hypernatremia; R00.1 Bradycardia, unspecified; Z85.51 Personal history of malignant neoplasm of bladder; Z87.891 Personal history of nicotine dependence; I10 Essential (primary) hypertension; R20.2 Paresthesia of skin; I77.9 Disorder of arteries and arterioles, unspecified; I49.3 Ventricular premature depolarization
CPT/HCPCS: 36415; 70450; 70544; 70547; 70551; 71045; 80048; 80061; 83735; 84443; 85025; 85610; 85730; 93005; 93306; 97161; 97166; 99283; J7030; A4216

== ENCOUNTER 2019-10-03 13:07 | Emergency (ER) | payer OTHER, SELFPAY ==
[2019-10-03 13:08] VITALS: BP 145/74; PULSE 60; RESP 18; TEMP 36.4; O2SAT 100; BMI 25.5
--- NOTE | 2019-10-03 13:49 | CT_ITS ---
STUDY: CT ABDOMEN AND PELVIS WITH CONTRAST REASON FOR EXAM: Male, 63 years old. PT STATED LLQ PAIN, HX OF AAA RUPTURE WITH REPAIR, HTN, BLADDER CA, CVA RADIATION DOSAGE (If Supplied By Facility): CTDIvol = ( 13.26 ) mGy, DLP = ( 951.90 ) mGycm TECHNIQUE: Transaxial images were obtained from the dome of the diaphragm to the symphysis pubis without oral contrast. 100ML ISOVUE 300 W ORAL was administered. Sagittal and coronal images were reconstructed. Individualized dose optimization techniques were used for this CT. COMPARISON: None. FINDINGS: Lung bases are clear. Heart size is normal. The liver is unremarkable. Multiple small dependent stones in the gallbladder. Common duct is not dilated. The spleen and pancreas are unremarkable. The adrenal glands are normal. Multiple bilateral renal cysts measuring up to 9.4 cm. No stones or hydronephrosis. The aorta is normal in caliber, with mild atherosclerotic calcification. Fusiform aneurysms of the common iliac arteries, measuring 2.2 cm on the right and 2 cm on the left. There is no free fluid, free air, or organized collection. Thick-walled sigmoid colon with pericolonic stranding. Findings are consistent with acute diverticulitis. Normal appendix. Urinary bladder is unremarkable. Normal abdominal wall. Normal osseous structures. CT/Abdomen/Pelvis WITH Contrast IMPRESSION: 1. Acute, uncomplicated sigmoid diverticulitis. 2. Cholelithiasis. 3. Bilateral common iliac artery aneurysms. 4. Multiple renal cysts. Electronically Signed: Hodan Palomino MD at 16:56 EST Tel , Service support ,
[2019-10-03 14:03] LABS: Absolute Lymphocyte Count 1.53 X10^3/uL (0.83-4.51); Absolute Neutrophil Count 9.6 X10^3/uL (2.0-7.7); Basophil# 0.03 X10^3/uL; Basophil% 0.3 % (0-1); Eosinophil# 0.06 X10^3/uL; Eosinophils% 0.5 % (0-5); Hematocrit 49.9 % (40-54); Hemoglobin 16.7 g/dL (13.0-16.5); Lymphocyte # 1.53 X10^3/ul (4.0); Lymphocyte % 12.8 % (19-41); Mean Corp Hgb Conc 33.5 g/dL (32-36); Mean Corpuscular Hgb 31.3 pg (27.0-32.0); Mean Corpuscular Volume 93.4 fL (80-94); Mean Platelet Vol. 11.2 fl (6.2-12.0); Monocyte% 5.8 % (0-10); NRBC Flagged by Analyzer 0 % (0-5); Neutrophil % 80.1 % (47-70); Platelet Count 200 K/mm3 (150-450); RBC Distribution Width CV 12.7 % (11.6-14.6); RBC Distribution Width SD 43.8 fl (35.1-43.9); Red Blood Count 5.34 M/mm3 (4.6-6.2)
[2019-10-03] MEDS: Morphine 4 MG/ML Syringe IV ×2 (14:03→15:10)
[2019-10-03] MEDS: Ondansetron 4 MG/2 ML Vial IV (14:03)
[2019-10-03] MEDS: 0.9% Normal Saline 1,000 ML 1000 ML IV (14:03)
[2019-10-03 14:14] LABS: ALB/GLOB Ratio 1.3 RATIO (0.9-2.4); AST(SGOT) 17 U/L (15-37); Alanine Aminotransfer ALT/SGPT 32 U/L (16-61); Albumin, Serum 4.2 g/dL (3.2-5.0); Alkaline Phosphatase 56 U/L (45-117); Anion Gap 4 (5-15); BUN 14 mg/dL (7-18); BUN/Creat Ratio 12.6 RATIO (10-20); Calcium,Total 9.3 mg/dL (8.5-10.1); Chloride 105 mmol/L (98-107); Creatinine, Serum 1.11 mg/dL (0.70-1.30); EST Glomerular Filtration Rate 71 mL/min (>60); Est Glom Filt Rate - Afr Amer 86 mL/min (>60); Estimated Creatinine Clearance 67.23 ml/min; Globulin 3.3 g/dL (2.2-4.2); Glucose 103 mg/dL (74-106); Protein, Total 7.5 g/dL (6.4-8.2); Sodium Level 139 mmol/L (136-145)
[2019-10-03 16:21] VITALS: BP 125/57; PULSE 74; RESP 17; O2SAT 94
--- NOTE | 2019-10-03 17:04 | ED.VISSUMM ---
- ER Visit Summary Date of Service: 10/03/19 Chief Complaint: Abdominal pain History of Present Illness: The patient is a 63 M who presents with abdominal pain that has been getting worse over the past 2 days. Patient states pain is over the left lower abdomen. Patient describes his pain is sharp and cramping. Patient states pain is worse with movement. Patient admits to nausea but denies any vomiting. Patient denies any diarrhea, melena, or hematochezia. Patient denies any urinary complaints. Patient denies any fevers or chills. Patient states he has a history of diverticulosis. Physical Examination: Vital signs are stable. Patient is afebrile. Patient is in no acute distress. Oral mucosa is pink and moist. Neck is supple. Trachea is midline. There is no JVD. Heart was regular rate and rhythm. Lungs are clear and equal bilateral. Abdomen is soft. Bowel sounds are normal. There is tenderness over the left lower abdomen. There is no rebound or guarding noted. Bowel sounds are normal. Cranial nerves II through XII are intact. There are no focal motor or sensory deficits noted. Skin is warm and dry. Extremities are intact. There is no calf tenderness or edema. Test Results: CBC shows a slight leukocytosis of 12.0. Comprehensive metabolic profile was within normal limits. CT scan of the abdomen and pelvis was obtained. There is acute uncomplicated sigmoid diverticulitis. There is no perforation or abscess. Emergency Department Course and Treatment: Patient was given IV fluids, morphine, and Zofran here. Patient was feeling better on reevaluation. Patient was given prescriptions for Cipro and Flagyl. Patient was instructed to start with a bland diet and advance as tolerated. Patient was instructed to follow-up with his primary care physician in 5 to 7 days. Patient understood and was agreeable with the plan. All questions were answered. Disposition: Discharge home Impression: 1. Acute sigmoid diverticulitis This note was generated with [employer] dictation software. It may contain incorrect words, spelling, and punctuation that were not noted in review of the chart prior to signing ED Disposition - Plan for ED Patient: Disposition: Home or Assisted Living Diagnosis: Sigmoid diverticulitis Instructions: Diverticulitis Prescriptions: Ciprofloxacin [Cipro] 500 mg PO BID #20 tab Prescription Printed metroNIDAZOLE [Flagyl] 500 mg PO Q6H #40 tab Prescription Printed Hydrocodone Bitart/Apap 5-325 [[place] 5MG-325MG] 1 tab PO Q6H PRN PRN 3 Days #10 tab PRN Reason: Pain Prescription Printed Referrals: Luis Manuel Escamilla MD [Primary Care Provider] - 5-7 Days
[2019-10-03 17:25] VITALS: BP 101/51; PULSE 72; RESP 12; O2SAT 95
[2019-10-03] MEDS: HYDROcodone Bitartrate/Apap 5/325 Tablet PO (17:31)
== END 2019-10-03 17:52 | disposition home or self-care (01) ==
PROVIDERS: Emergency Provider Emergency Medicine; Family Provider Family Medicine; PCP Family Medicine
DX: R10.9 Unspecified abdominal pain (principal); K57.32 Diverticulitis of large intestine without perforation or abscess without bleeding; Z85.51 Personal history of malignant neoplasm of bladder; Z87.19 Personal history of other diseases of the digestive system
CPT/HCPCS: 74177; 80053; 85025; 96361; 96374; 96375; 96376; 99284; J7030; Q9967; A4216; J2405

== ENCOUNTER 2020-07-20 18:26 | Emergency (ER) | payer OTHER, SELFPAY ==
[2020-07-20 18:27] VITALS: BP 137/74; PULSE 60; RESP 16; TEMP 36.3; O2SAT 100; BMI 22.4
[2020-07-20 19:24] LABS: Absolute Lymphocyte Count 1.81 X10^3/uL (0.83-4.51); Absolute Neutrophil Count 12.6 X10^3/uL (2.0-7.7); Basophil# 0.04 X10^3/uL; Basophil% 0.3 % (0-1); Eosinophil# 0.06 X10^3/uL; Eosinophils% 0.4 % (0-5); Hematocrit 53.7 % (40-54); Lymphocyte # 1.81 X10^3/ul (4.0); Lymphocyte % 11.3 % (19-41); Mean Corp Hgb Conc 33.5 g/dL (32-36); Mean Corpuscular Hgb 31.9 pg (27.0-32.0); Mean Platelet Vol. 10.3 fl (6.2-12.0); Monocyte# 1.41 X10^3/uL; Monocyte% 8.8 % (0-10); NRBC Flagged by Analyzer 0 % (0-5); Neutrophil % 78.8 % (47-70); Platelet Count 206 K/mm3 (150-450); RBC Distribution Width CV 13.4 % (11.6-14.6); RBC Distribution Width SD 47.1 fl (35.1-43.9); Red Blood Count 5.65 M/mm3 (4.6-6.2)
[2020-07-20 19:27] LABS: POSITIVE COUNT NO; POSITIVE DIFFERENTIAL NO; POSITIVE MORPHOLOGY NO
[2020-07-20 19:42] LABS: Anion Gap 5 (5-15); BUN 14 mg/dL (7-18); Calcium,Total 9.3 mg/dL (8.5-10.1); Chloride 105 mmol/L (98-107); Creatinine, Serum 1.08 mg/dL (0.70-1.30); EST Glomerular Filtration Rate 73 mL/min (>60); Est Glom Filt Rate - Afr Amer 88 mL/min (>60); Glucose 102 mg/dL (74-106); Potassium 3.9 mmol/L (3.5-5.1); Sodium Level 138 mmol/L (136-145)
--- NOTE | 2020-07-20 19:55 | CT_ITS ---
STUDY: CT ABDOMEN AND PELVIS WITH CONTRAST REASON FOR EXAM: Male, 64 years old. LLQ PAIN, DIARRHEA, H/O DIVERTICULITIS RADIATION DOSAGE (If Supplied By Facility): CTDIvol = ( 15.50 ) mGy, DLP = ( 1006.60 ) mGycm TECHNIQUE: Transaxial images were obtained from the dome of the diaphragm to the symphysis pubis without oral contrast. IV 100mL Isovue-300 was administered. Sagittal and coronal images were reconstructed. Individualized dose optimization techniques were used for this CT. COMPARISON: None. FINDINGS: Minor interstitial thickening in left lower lobe. Heart is enlarged. Liver is fatty infiltrated without mass or bile duct dilatation. Multiple tiny calcified gallstones without evidence for acute inflammation. Normal spleen. Normal pancreas. Normal bilateral adrenal glands. The kidneys are enlarged and demonstrate multiple cysts of varying sizes consistent with adult onset polycystic kidney disease. Normal visualized stomach. Normal small intestine. ... Diverticular disease of the descending and sigmoid colon. There is focal segmental thickening of the gil of the distal descending colon with stranding in the fat consistent with acute diverticulitis. No evidence for peridiverticular abscess.. The appendix is visualized and appears normal. Atherosclerotic changes of the aorta without evidence for aneurysm. However there is mild aneurysmal dilatation of the common iliac arteries bilaterally. Normal inferior vena cava. Normal retroperitoneum. Incompletely distended thick-walled bladder likely of no significance Small amount of free fluid in the pelvis. Small fat-containing left inguinal hernia.. Normal osseous structures. CT/Abdomen/Pelvis W IV Cont ONLY IMPRESSION: Diverticular disease of the descending and sigmoid colon with acute diverticulitis of the distal descending colon but no peridiverticular abscess.. Cholelithiasis without evidence for acute cholecystitis Other findings as above Electronically Signed: Eddie Gottlieb MD at 22:35 EDT , Service support ,
--- NOTE | 2020-07-20 20:02 | ED.DCSUM_ITS ---
History of Present Illness Chief Complaint: Abd Pain Informant: Patient Narrative: Patient is a 64-year-old male with a past medical history of CHF, hypertension who presents to the emergency department for left lower quadrant abdominal pain. He currently rates this as a 7 out of 10. It does wax and wane. He tried taking Tylenol for this which did not give him any relief. Does not know aggravating or relieving factors. He has had a slight change of bowel movement as he has been going more frequently with smaller amounts. He denies any diarrhea, constipation, blood in the stool or black tarry stools. He has been mildly nauseous but denies any vomiting. No fevers or chills. He has had this pain before in the past twice when he was diagnosed with diverticulitis. This did resolve with antibiotics previously. No previous abdominal surgeries. He denies any chest pain, shortness of breath. No radiation of his pain into his back. He denies any urinary symptoms. Past Medical History - Allergies and Home Meds Allergies/Adverse Reactions: Allergies oxycodone [From Percocet] Allergy (Verified 07/20/20 18:26) Itching Primary Care Physician: Luis Manuel Escamilla MD [Primary Care Provider] - 3-5 Days Prior records reviewed: Yes Past Medical History: - - CHF, hypertension, mini stroke Surgical History: - - Aortic dissection repair, tonsillar abscess I&D. Smoking Status: Never smoker - Family History Maternal Family History: Reports: - - Patient notes a maternal family history of heart disease, hypertension, history of CA. Paternal Family History: Reports: - - Patient notes a paternal family history of heart disease and hypertension. Review of Systems All systems negative except as indicated General: Denies: Chills, Fever, Sweats Eyes: Denies: Visual changes - bilaterally, Diplopia ENT: Denies: Rhinorrhea, Sore throat Cardiovascular: Denies: Chest pain, Palpitations Respiratory: Denies: Dyspnea, Cough, Dyspnea on exertion Gastrointestinal: Reports: Abdominal pain. Denies: Nausea, Vomiting, Diarrhea, Melena, Hematochezia Genitourinary: Denies: Dysuria, Hematuria, Frequency Musculoskeletal: Denies: Back pain, Extremity Pain Skin: Denies: Rash, Wounds Neurological: Denies: Headache, Weakness, Numbness Physical Exam Vital Signs/Narrative: Vital Signs Temp Pulse Resp BP Pulse Ox 07/20/20 18:27 97.3 F L 60 16 137/74 H 100 Inital Vital Signs reviewed: Yes General: Well nourished, Well developed, No Acute Distress Head: Normocephalic, Atraumatic Eyes: Perrl, EOMI ENT: Moist mucous membranes, No rhinorrhea Neck: Supple, Nontender Cardiovascular: Regular rate, Regular rhythm, No murmurs Respiratory: No distress, CTA bilaterally, Chest nontender Abdomen: Soft, Nondistended, Normal bowel sounds, Tender - Left lower quadrant.. Negative for: Guarding, Rebound tenderness, Rovsig's sign, Troy's sign - No pain over McBurney's point. Back: Nontender, Normal Inspection. Negative for: CVA tenderness, Spinal tenderness Extremities: Nontender, No edema Skin: Normal color, No rash Neurological: Alert, Oriented x3, Cranial nerves II-XII grossly intact, Normal Strength, Normal Sensation Psychological: Normal affect, Normal Mood Diagnostic/Tx/Re-eval - Medical Decision Making Patient presents to the ED for left lower quadrant abdominal pain. Upon arrival to the emergency department his vital signs are within normal limits. Does have significant tenderness in the left lower quadrant but has no peritoneal signs. Patient given morphine for symptomatic treatment. Basic lab work being obtained along with CT scan of the abdomen/pelvis. CT scan abdomen/pelvis was significant for diverticulitis. Given first dose of Augmentin here. Given his aorta history we will hold off on the ciprofloxacin and metronidazole. He does have many cysts on his kidneys which do appear to be stable from previous scans. He was made aware of this. He was also made aware of his elevated hemoglobin. He needs to follow-up with his PCP for repeat lab draw. At this time will discharge home in stable condition. Warning signs and symptoms for which to return to the ED are reviewed. Will give a prescription for Robbins and Zofran for symptomatic treatment as well. He does have an allergy to Percocet but does not believe he has had an allergy to Robbins before. He understands that he could potentially have a reaction to this and should take Benadryl or if he develops any significant oral swelling he needs return to the emergency department. He otherwise needs to follow-up with his PCP. He understands and is agreeable this plan. ED Disposition - Plan for ED Patient: Disposition: Home or Assisted Living Diagnosis: Diverticulitis, Polycythemia Instructions: ED Diverticulitis Prescriptions: Amoxicillin/Potassium Clav [Augmentin 875-125 Tablet] 1 ea PO BID 10 Days #20 tab Transmission Status: Received by DEO LEBLANC RD Hydrocodone Bitart/Apap 5-325 [[place] 5MG-325MG] 1 tab PO Q6H PRN PRN 3 Days #10 tab PRN Reason: Pain Transmission Status: Received by DEO LEBLANC RD Ondansetron [Zofran Odt] 4 mg PO Q8H PRN PRN #10 tab PRN Reason: Nausea Transmission Status: Received by DEO LEBLANC RD Referrals: Luis Manuel Escamilla MD [Primary Care Provider] - 3-5 Days
[2020-07-20] MEDS: Morphine 4 MG/ML Syringe IV ×2 (20:03→21:40)
[2020-07-20 20:20] LABS: Bacteria 0 SEEN /hpf (None Seen); Mucous, Urine 0 SEEN /hpf (<or=2+); Red Blood Cells-Urine 0 SEEN /hpf (0-5)
[2020-07-20 20:23] LABS: Color, Urine Yellow (Yellow); Glucose, Dipstick Normal (Normal); Ketone-Dipstick 5 mg/dl (Negative); Leukocyte Esterase-Dipstick Negative /ul (Negative); Nitrite-Dipstick Negative (Negative); Occult Blood-Urine Negative /ul (Negative); Protein-Dipstick 30 mg/dl (Negative); Urine Bilirubin Dipstick Negative (Negative); Urine Clarity Clear (Clear); Urine Urobilinogen Normal (Normal)
[2020-07-20 20:32] LABS: Squamous Epithelial Cells - UA 0-5 SEEN /hpf (0-5); White Blood Cells 0-5 SEEN /hpf (0-5)
[2020-07-20 20:51] LABS: Lipase 87 U/L (73-393)
[2020-07-20 20:55] LABS: AST(SGOT) 17 U/L (15-37); Alanine Aminotransfer ALT/SGPT 51 U/L (16-61); Albumin, Serum 3.5 g/dL (3.2-5.0); Alkaline Phosphatase 57 U/L (45-117); Bilirubin, Direct 0.36 mg/dL (0.00-0.30); Globulin 3.4 g/dL (2.2-4.2); Protein, Total 6.9 g/dL (6.4-8.2)
[2020-07-20 21:06] VITALS: BP 123/66; PULSE 59; RESP 16
[2020-07-20] MEDS: Ondansetron 4 MG/2 ML Vial IV (21:40)
[2020-07-20] MEDS: Amox/Clavulanate 875 MG Tablet PO (21:41)
[2020-07-20] MEDS: HYDROcodone Bitartrate/Apap 5/325 Tablet PO (22:54)
== END 2020-07-20 22:56 | disposition home or self-care (01) ==
PROVIDERS: Emergency Provider Emergency Medicine; PCP Family Medicine
DX: K57.92 Diverticulitis of intestine, part unspecified, without perforation or abscess without bleeding (principal); D75.1 Secondary polycythemia; I11.0 Hypertensive heart disease with heart failure; I50.9 Heart failure, unspecified; Z79.01 Long term (current) use of anticoagulants; Z79.899 Other long term (current) drug therapy; Z86.73 Personal history of transient ischemic attack (TIA), and cerebral infarction without residual deficits
CPT/HCPCS: 74177; 80048; 80076; 81001; 83690; 85025; 96374; 96375; 96376; 99284; J7030; Q9967; J2405

== ENCOUNTER 2020-07-21 16:26 | Inpatient (IN) | payer OTHER, SELFPAY ==
[2020-07-20 18:27] VITALS: BMI 22.4
[2020-07-21] VITALS (7 sets, daily range): BP systolic 104–128; BP diastolic 66–80; PULSE 58–64; RESP 14–20; TEMP 36.6; O2SAT 92–99; BMI 21.9; BMI 22.4; BMI 22.5
--- NOTE | 2020-07-21 16:48 | ED.VIS.GEN ---
History of Present Illness Chief Complaint: Abd Pain Informant: Patient, Significant Other Onset: Days - 2 Narrative: Worsening abdominal pain today. Seen yesterday in the ED diagnosed with diverticulitis sent home on Chandler and Augmentin. He took his Augmentin this morning, Chandler taken little over 2 hours ago. Pain is worsening today. No fevers. Symptoms started 2 days ago. Has had diverticulitis in the past colonoscopy 3 years ago at [facility]. Denies any bloody stools. Denies vomiting, mild nausea. Allergic to Percocets. History of CHF, aortic dissection with repair in the past. He states his pain was controlled with the morphine yesterday however progressed throughout the evening. Review of records noted CAT scan with descending colon sigmoid diverticulitis with fat stranding. There is no abscess. He had a white count of 16 yesterday. Prior similar symptoms: Yes Past Medical History - Allergies and Home Meds Allergies/Adverse Reactions: Allergies oxycodone [From Percocet] Allergy (Verified 07/20/20 18:26) Itching Past Medical History: - - Hypertension, CHF, aortic dissection, CVA, bladder cancer Surgical History: - - Aortic dissection repair, tonsillar abscess I&D. Smoking Status: Never smoker - Family History Maternal Family History: Reports: - - Patient notes a maternal family history of heart disease, hypertension, history of [place]. Paternal Family History: Reports: - - Patient notes a paternal family history of heart disease and hypertension. Review of Systems General: Denies: Chills, Fever, Sweats Eyes: Denies: Visual changes - bilaterally, Diplopia ENT: Denies: Rhinorrhea, Sore throat Cardiovascular: Denies: Chest pain, Palpitations Respiratory: Denies: Dyspnea, Cough, Dyspnea on exertion Gastrointestinal: Reports: Abdominal pain, Nausea. Denies: Vomiting, Diarrhea, Melena, Hematochezia Genitourinary: Denies: Dysuria, Hematuria, Frequency Musculoskeletal: Denies: Back pain, Extremity Pain Skin: Denies: Rash, Wounds Neurological: Denies: Headache, Weakness, Numbness Physical Exam Vital Signs/Narrative: Vital Signs Temp Pulse Resp BP Pulse Ox 07/21/20 16:27 97.9 F 60 14 125/71 H 99 Inital Vital Signs reviewed: Yes General: Well nourished, Well developed, - - Nontoxic Head: Normocephalic, Atraumatic Eyes: Perrl, EOMI ENT: Moist mucous membranes, No rhinorrhea Neck: Supple, Nontender Cardiovascular: Regular rate, Regular rhythm, No murmurs Respiratory: No distress, CTA bilaterally, Chest nontender Abdomen: Soft, Nondistended, Normal bowel sounds, Tender, - - Left lower quadrant suprapubic tenderness without guarding or rebound.. Negative for: Guarding, Rebound tenderness Back: Nontender, Normal Inspection Extremities: Nontender, No edema Skin: Normal color, No rash Neurological: Alert, Oriented x3, Cranial nerves II-XII grossly intact, Normal Strength, Normal Sensation Psychological: Normal affect, Normal Mood Diagnostic/Tx/Re-eval Clinical Impression(s) from Imaging Studies Abdomen/Pelvis CT 07/21/20 17:35 IMPRESSION: Diverticular disease of the distal descending and sigmoid colon in association with severe acute diverticulitis but no evidence for peridiverticular abscess. Increasing inflammatory changes in the fluid in the abdomen and pelvis since prior exam Electronically Signed: Eddie Gottlieb MD at 20:05 EDT , Service support , Abnormal Lab Results 07/21/20 07/21/20 17:15 17:15 WBC 21.8 H RBC 6.26 H Hgb 19.8 H* Hct 60.1 H MCV 96.0 H MCH 31.6 MCHC 32.9 RDW Std Deviation 47.7 H RDW Coeff of Edward 13.7 Plt Count 217 MPV 10.6 Immature Gran % (Auto) 0.600 Neut % (Auto) 88.2 H Lymph % (Auto) 4.9 L Eagle % (Auto) 6.0 Eos % (Auto) 0.1 Baso % (Auto) 0.2 Absolute Neuts (auto) 19.2 H Absolute Lymphs (auto) 1.06 Nucleated RBC % 0 Sodium 136 Potassium 4.5 Chloride 102 Carbon Dioxide 29.0 Anion Gap 5 BUN 17 Creatinine 1.40 H Estim Creat Clear Calc 50.00 Est GFR (MDRD) Af Amer 65 Est GFR (MDRD) Non-Af 54 L BUN/Creatinine Ratio 12.1 Glucose 136 H Calcium 9.4 Total Bilirubin 1.30 H AST 12 L ALT 36 Alkaline Phosphatase 50 Total Protein 6.7 Albumin 3.1 L Globulin 3.6 Albumin/Globulin Ratio 0.9 Lipase 54 L - Medical Decision Making Patient vital signs stable afebrile. Known diverticulitis from yesterday. Worsening pain. He did not meet Sirs criteria on arrival, labs were redrawn was started on Zosyn with known diverticulitis diagnosis from yesterday. Treated with morphine Zofran IV fluids. Labs noted white count returning elevated at 21.8. Blood pressure stable is 1 out of 4 Sirs and did not meet sepsis criteria. On reevaluation pain return, he reported more pain on the right side, discussed with patient will send for re-CT to rule out any complications from his diagnosis from yesterday. This was done with contrast. Results return per radiology no signs of abscess or perforation. There was reported increasing inflammatory changes and fluid collection. Patient family updated on results. He is nontoxic, with worsening symptoms failing outpatient therapy, and for pain control, I did discuss with hospitalist, Dr. Decker for admission. With his vitals being stable, he is stable for the medical floor. ED Disposition - Plan for ED Patient: Disposition: Acute Care Hospital [facility] Diagnosis: Acute diverticulitis, Abdominal pain
[2020-07-21] MEDS: 0.9% Normal Saline 1,000 ML 150 ML IV (17:05)
[2020-07-21] MEDS: Morphine 4 MG/ML Syringe IV (17:05)
[2020-07-21] MEDS: Ondansetron 4 MG/2 ML Vial IV (17:05)
[2020-07-21 17:21] LABS: Absolute Lymphocyte Count 1.06 X10^3/uL (0.83-4.51); Absolute Neutrophil Count 19.2 X10^3/uL (2.0-7.7); Basophil# 0.05 X10^3/uL; Basophil% 0.2 % (0-1); Eosinophil# 0.03 X10^3/uL; Eosinophils% 0.1 % (0-5); Lymphocyte # 1.06 X10^3/ul (4.0); Lymphocyte % 4.9 % (19-41); Mean Corp Hgb Conc 32.9 g/dL (32-36); Mean Corpuscular Hgb 31.6 pg (27.0-32.0); Mean Platelet Vol. 10.6 fl (6.2-12.0); NRBC Flagged by Analyzer 0 % (0-5); Neutrophil # 19.18 X10^3/uL (2.7-7.7); Neutrophil % 88.2 % (47-70); Platelet Count 217 K/mm3 (150-450); RBC Distribution Width CV 13.7 % (11.6-14.6); RBC Distribution Width SD 47.7 fl (35.1-43.9); Red Blood Count 6.26 M/mm3 (4.6-6.2); White Blood Count 21.8 K/mm3 (4.4-11.0)
[2020-07-21 17:24] LABS: Hematocrit 60.1 % (40-54)
[2020-07-21 17:25] LABS: Hemoglobin 19.8 g/dL (13.0-16.5)
[2020-07-21 17:35] LABS: ALB/GLOB Ratio 0.9 RATIO (0.9-2.4); AST(SGOT) 12 U/L (15-37); Alanine Aminotransfer ALT/SGPT 36 U/L (16-61); Albumin, Serum 3.1 g/dL (3.2-5.0); Alkaline Phosphatase 50 U/L (45-117); Anion Gap 5 (5-15); BUN 17 mg/dL (7-18); BUN/Creat Ratio 12.1 RATIO (10-20); Calcium,Total 9.4 mg/dL (8.5-10.1); Chloride 102 mmol/L (98-107); EST Glomerular Filtration Rate 54 mL/min (>60); Est Glom Filt Rate - Afr Amer 65 mL/min (>60); Globulin 3.6 g/dL (2.2-4.2); Glucose 136 mg/dL (74-106); Lipase 54 U/L (73-393); Potassium 4.5 mmol/L (3.5-5.1); Protein, Total 6.7 g/dL (6.4-8.2); Sodium Level 136 mmol/L (136-145)
--- NOTE | 2020-07-21 17:35 | CT_ITS ---
STUDY: CT ABDOMEN AND PELVIS WITH CONTRAST REASON FOR EXAM: Male, 64 years old. Diverticulitis-worsening pain .Hx of bladder cancer, CVA, HTN, pacemaker and heart stents RADIATION DOSAGE (If Supplied By Facility): CTDIvol = ( 17.74 ) mGy, DLP = ( 483.96 ) mGycm TECHNIQUE: Transaxial images were obtained from the dome of the diaphragm to the symphysis pubis without oral contrast. Oral and amp; IV Gastrografin and amp; 75mL Isovue-370 was administered. Sagittal and coronal images were reconstructed. Individualized dose optimization techniques were used for this CT. COMPARISON: 07/20/2020 FINDINGS: There is minor atelectasis within the dependent portion of the lungs.. The heart is enlarged. Nonspecific fatty infiltration of liver without mass or bile duct dilatation.. Distended gallbladder containing tiny calcified stones without evidence for pericholecystic edema.. Normal spleen. Normal pancreas. Normal bilateral adrenal glands. No evidence for renal obstruction. There are multiple bilateral renal cysts of varying sizes.. Normal visualized stomach. Normal small intestine. Diverticular disease of the descending and sigmoid colon.. There is marked thickening of the gil of the mid to distal descending colon with rounding fat and pericolonic fluid consistent with severe acute diverticulitis. There is no peridiverticular abscess. The appendix is visualized and appears normal. Atherosclerotic changes of the aorta without evidence for aneurysm. Normal inferior vena cava. Normal retroperitoneum. Incompletely distended thick-walled bladder. There is moderate amount of fluid noted within the pelvis Small fat-containing left inguinal hernia is observed. Lumbar spine demonstrates degenerative change The focal inflammatory changes have progressed since previous study and there is increasing amount of fluid since that time CT/Abdomen/Pelvis WITH Contrast IMPRESSION: Diverticular disease of the distal descending and sigmoid colon in association with severe acute diverticulitis but no evidence for peridiverticular abscess. Increasing inflammatory changes in the fluid in the abdomen and pelvis since prior exam Electronically Signed: Eddie Gottlieb MD at 20:05 EDT , Service support ,
[2020-07-21] MEDS: fentaNYL 100 MCG/2 ML Ampul 50 MCG IV ×2 (18:03→20:25)
--- NOTE | 2020-07-21 20:38 | PCM.HP.STD ---
Problem List (1) Acute diverticulitis Status: Acute (2) HTN (hypertension) Status: Chronic Qualifiers: Hypertension type: essential hypertension Qualified Code(s): I10 - Essential (primary) hypertension (3) Aortic disease Status: Chronic (4) CVA (cerebral vascular accident) Status: Chronic Qualifiers: CVA mechanism: unspecified Qualified Code(s): I63.9 - Cerebral infarction, unspecified History of Present Illness Date of Admission: 07/21/20 Chief Complaint: Abdominal pain. The patient is a 64 year old M with past medical history as mentioned above presented to the emergency room because of abdominal pain. His illness started 2 days ago with abdominal pain, difficult chronic abdominal pain, described as a grabbing pain, 7 out of 10 in severity, extends to the right lower quadrant, associated with nausea, aggravated by even drinking water and without relieving factors. Patient has been constant for the last 2 days. Yesterday, he came to the emergency department, had CT scan abdomen and pelvis with IV contrast that showed acute diverticulitis of the descending and sigmoid colon, was discharged on Augmentin. Patient mentioned that he took Augmentin but his pain kept worsening. He denied fever or chills. He denied constipation or diarrhea. He reported poor appetite. He mentioned that he had history of acute diverticulitis in the past multiple times, last attack of acute diverticulitis was back on June,. He had colonoscopy by Dr. Gloria 3 years ago. In the emergency department, he was afebrile, blood pressure and heart rate are stable, pulse ox is 96% on room air. Routine blood work was remarkable for significant leukocytosis which has been worsening since yesterday, hemoconcentration with hemoglobin of 19.8 g/dL, creatinine is 1.40. LFT revealed slightly elevated bilirubin, liver transaminases and alkaline phosphatase are normal. Lipase was normal. CT scan abdomen and pelvis with contrast done again today and revealed acute diverticulitis of the descending and sigmoid colon without evidence of abscess. Patient is being admitted for acute diverticulitis of the distal descending and sigmoid colon. Past Medical History Past Medical History (Chronic Problems): Chronic Problems HTN (hypertension) (Chronic) Aortic disease (Chronic) Bladder cancer (Chronic) CVA (cerebral vascular accident) (Chronic) Allergies oxycodone [From Percocet] Allergy (Verified 10/06/20 18:26) Itching Home Medications: Ambulatory Orders Medication Instructions Recorded traZODone [Desyrel] 100 mg PO QHS PRN PRN 06/15/18 Hydrocodone Bitart/Apap 5-325 1 tab PO Q6H PRN PRN 3 Days #10 tab 07/20/20 [[place] 5MG-325MG] Ondansetron [Zofran Odt] 4 mg PO Q8H PRN PRN #10 tab 07/20/20 Acebutolol HCl 100 mg PO BID 07/21/20 Amoxicillin/Potassium Clav 1 tab PO BID 07/21/20 [Augmentin 875-125 Tablet] Furosemide [Lasix] 20 mg PO DAILY 07/21/20 Losartan Potassium [Cozaar] 50 mg PO BID 07/21/20 Rivaroxaban [Xarelto] 20 mg PO DAILY 07/21/20 Surgical History: - - Aortic dissection repair, tonsillar abscess I&D. Psychiatric History: No pertinent psych hx Lives: Spouse/ Significant Other Smoking Status: Never smoker Alcohol: None Drugs: None - *Family History Maternal History Items: - - Patient notes a maternal family history of heart disease, hypertension, history of VT. Paternal History Items: - - Patient notes a paternal family history of heart disease and hypertension. Review of Systems Constitutional: Reports: Anorexia, Weakness. Denies: Chills, Fever Eyes: Denies: Blurred vision, Double vision, Drainage, Redness HEENT: Denies: Difficulty Hearing, Ear Pain, Eye Pain, Nasal Congestion, Sore Throat Cardiovascular: Denies: Chest Pain, Claudication, Chest Pressure, Edema, Heaviness, Light Headedness, Palpitations, Syncope Respiratory: Denies: Cough, Pleuritic Pain, Shortness of Breath, Sputum production, Wheezing Gastrointestinal: Reports: Abdominal Pain, Nausea. Denies: Constipation, Diarrhea, Hematochezia, Vomiting Genitourinary: Denies: Dysuria, Frequency, Hematuria Musculoskeletal: Denies: Arm Pain, Back Pain, Foot Pain Skin: Denies: Dryness, Rash Neurological: Denies: Balance problems, Double vision, Change in Speech, Slurred speech, Confusion, Headaches, Incoordination, Numbness Psychiatric: Denies: Anxiety, Depression Endocrine: Denies: Change in Body Habitus, Polydipsia, Polyuria VTE Information - Inpt Only VTE Present on Admission: No VTE Mechan Device Prophylaxis: None VTE Pharm Prophylaxis ordered?: No Patient Problems: Active and Suspected Problems Acute diverticulitis (Acute) - Physical Exam Vitals/I&O's: Vital Signs Temp Pulse Resp BP Pulse Ox 97.8 F 58 L 18 104/67 93 07/21/20 20:32 07/21/20 20:32 07/21/20 20:32 07/21/20 20:32 07/21/20 20:32 Oxygen Delivery Method Room Air Weight: 148 lb 2.41 oz Body Mass Index (BMI) 21.9 Intake and Output for Last 24 Hours 07/19/20 07/20/20 07/21/20 23:59 23:59 23:59 Intake Total 100 / 100 Balance 100 / 100 General: Alert, Oriented x3, Cooperative, No apparent distress HEENT: Atraumatic, PERRLA, EOMI, Normocephalic Oral: Moist Mucosa, No Gingival or Mucosal Lesions/ Ulcerations Neck: Supple, No JVD, Negative Carotid Bruits, Trachea Midline, Thyroid Normal Size and Texture Lungs: Clear to auscultation, Normal air movement, No rhonchi, No wheeze, No rales Cardiovascular: Regular rate, Regular Rhythm, Normal S1, Normal S2, PMI Normal Abdomen: Bowel Sounds Present, Soft, Non-Distended, No Hepato-splenomegaly, Tender - Significant left lower quadrant tenderness, guarding, no rigidity. Extremities: No clubbing, No cyanosis, No edema Skin: No rashes, No breakdown Musculoskeletal: No Tenderness to Palpation of Joints or Extremities Lymphatic: No Cervical, Supraclavicular, or Inguinal Adenopathy Neurological: Cranial nerves II-XII grossly intact, Motor Exam 5/5 strength throughout Psych/Mental Status: Normal Affect, Appropriate, Alert and oriented to time, place, person, mood and affect Laboratory Results 07/21/20 17:15: WBC 21.8 H, RBC 6.26 H, Hgb 19.8 H*, Hct 60.1 H, MCV 96.0 H, MCH 31.6, MCHC 32.9, RDW Std Deviation 47.7 H, RDW Coeff of Edward 13.7, Plt Count 217, MPV 10.6, Immature Gran % (Auto) 0.600, Neut % (Auto) 88.2 H, Lymph % (Auto) 4.9 L, Harvey % (Auto) 6.0, Eos % (Auto) 0.1, Baso % (Auto) 0.2, Absolute Neuts (auto) 19.2 H, Absolute Lymphs (auto) 1.06, Nucleated RBC % 0 07/21/20 17:15: Sodium 136, Potassium 4.5, Chloride 102, Carbon Dioxide 29.0, Anion Gap 5, BUN 17, Creatinine 1.40 H, Estim Creat Clear Calc 50.00, Est GFR (MDRD) Af Amer 65, Est GFR (MDRD) Non-Af 54 L, BUN/Creatinine Ratio 12.1, Glucose 136 H, Calcium 9.4, Total Bilirubin 1.30 H, AST 12 L, ALT 36, Alkaline Phosphatase 50, Total Protein 6.7, Albumin 3.1 L, Globulin 3.6, Albumin/Globulin Ratio 0.9, Lipase 54 L Clinical Impression(s) from Imaging Studies Abdomen/Pelvis CT 07/21/20 17:35 IMPRESSION: Diverticular disease of the distal descending and sigmoid colon in association with severe acute diverticulitis but no evidence for peridiverticular abscess. Increasing inflammatory changes in the fluid in the abdomen and pelvis since prior exam Electronically Signed: Eddie Gottlieb MD at 20:05 EDT , Service support , Current Medications Sodium Chloride () 1,000 mls @ 150 mls/hr IV .[id number] [facility] Last Admin: 07/21/20 17:05 Dose: 150 mls/hr Documented by: Assessment/Plan All Active Problems Acute diverticulitis (Acute) This is a 64 years old male patient presented to the emergency room because of abdominal pain and he was found to have acute diverticulitis of the distal descending and sigmoid colon and is being admitted for treatment. #1 acute diverticulitis of the distal descending and sigmoid colon: In context of history of recurrent acute diverticulitis, last attack was on June,. Patient had colonoscopy [address] scan abdomen and pelvis reviewed, no abscess, revealed significant inflammatory changes. No evidence of sepsis or sepsis, patient afebrile, no tachycardia. Plan: Admit to [facility] floor, clear liquids, IV fluids, IV morphine PRN, IV antiemetics PRN, IV Pepcid twice daily, IV Zosyn, general surgery consult, repeat CBC and CMP tomorrow morning. #2 acute kidney injury: Secondary to #1. Patient does have hemoconcentration, hemoglobin is 19.8, serum creatinine 1.4. Baseline creatinine is within normal limits. Patient's mentioned that he was started on Lasix few days ago for suspected CHF. Plan: IV fluids, input output chart, repeat BMP tomorrow morning. #3 hypertension: Blood pressure stable, continue losartan and acebutolol. #4 history of aortic dissection: Status post repair with endovascular graft repair. Stable, no acute issues. Blood pressure stable. #5 history of bladder cancer: Stable, in remission. #6 history of CVA/recurrent TIAs: Stable, no complaints, continue Xarelto. #7 DVT prophylaxis: Continue Xarelto. This note was generated with [employer] dictation software. It may contain incorrect words, spelling, and punctuation that were not noted in checking the note before signing. Inpatient E&M: [id number] Init Hosp L3
[2020-07-21] MEDS: Morphine 2 MG/ML Syringe IV (22:04)
[2020-07-21] MEDS: 0.9% Normal Saline 1,000 ML 100 ML IV (22:36)
[2020-07-21] MEDS: Famotidine 200 MG/20 ML MDV 20 MG in 0.9% Normal Saline (Pres. free 8 ML 300 MG IV (22:36)
--- NOTE | 2020-07-21 22:38 | PCM.CONS.GEN ---
Problem List (1) Acute diverticulitis Status: Acute Reason for Consult Date of Consultation: 07/21/20 History of Present Illness: The patient is a 64 year old M who I have been asked to see by with a tentative diagnosis of diverticulitis. A written copy of my surgical consult will be present in the charting. This is a 64-year-old gentleman. He presented to the emergency room last night with severe acute abdominal pain. He shares with me that actually for at least 2 weeks he has had markedly abnormal bowel movements. He has been passing only small amounts of flecks of stool and mucus. He denies fever or chills or sweats. He was in significant discomfort yesterday. His laboratory was markedly abnormal as noted below with a white blood cell count of 16,000 and a hemoglobin of 18 with an hematocrit of 53.7 these were felt to be critical values. Platelet count 206,000. 78% neutrophils. On the patient's return visit today because of progressively increasing the severe abdominal pain his white blood cell count is 21.8 thousand with a hemoglobin 19.8 hematocrit 60.1 platelet count 217,088% neutrophils. His current BUN is 17 creatinine 1.4. Estimated GFR is 54. Total bilirubin is 1.3. Albumin 3.1. Lipase 54. RUN DATE: 07/21/20 [facility], DEPARTMENT OF LABORATORIES PAGE 1 RUN TIME: 2 Specimen Inquiry [id number] [place], [address] PATIENT: LADARIUS MORE LOC: ED U #: [id number] : 1955 AGE/SX: 64/M FACILITY: [facility] ROOM: RE07/20/[address]: Dr. Taqueria Fraser DO STATUS:DEP ER BED: DIS: ~ SPEC #: [id number] MARQUISE: 07/20/20 STATUS: COMP REQ #: [id number] RECD: 07/20/[address]: PROVIDER,ED PHYSICIAN ENTERED: 07/20/[address]: DO Dr. Luis Manuel Moses MD ~ Test Result Flag Adult Reference Range CBCD WBC 16.0 H 4.4-11.0 K/mm3 RBC 5.65 4.6-6.2 M/mm3 HGB 18.0 *H 13.0-16.5 g/dL CRITICAL VALUE VERIFIED. CALLED TO LUIS FERNANDO SH[employer] HEAT TREAT INSPECTOR 07/20/201926 [place] Jolly. RESULTS READ BACK BY SAME . HCT 53.7 40-54 % MCV 95.0 H 80-94 fL MCH 31.9 27.0-32.0 pg MCHC 33.5 32-36 g/dL RDW CV 13.4 11.6-14.6 % RDW SD 47.1 H 35.1-43.9 fl PLT 206 150-450 K/mm3 MPV 10.3 6.2-12.0 fl NEUT% 78.8 H 47-70 % LY% 11.3 L 19-41 % MONO% 8.8 0-10 % EO% 0.4 0-5 % BASO% 0.3 0-1 % IG% 0.400 0.0-0.9 % IG% - Immature Granulocytes (promyelocytes, myelocytes and metamyelocytes) > 1% indicates that a LEFT SHIFT is Present. Absolute Neut 12.6 H 2.0-7.7 X10^3/uL Absolute Lymph 1.81 0.83-4.51 X10^3/uL NUCLEATED RBC 0 0-5 % A CT scan was obtained yesterday. This demonstrated what was felt to be diverticular disease of the descending and sigmoid colon with acute diverticulitis of the descending colon. There was felt to be no abscess. There was cholelithiasis without evidence for acute cholecystitis. 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 There are polycystic kidneys. There is free fluid in the pelvis. Small fat-containing left inguinal hernia. In in completely distended thick-walled urinary bladder On the patient's return visit today the CT scan shows minor atelectasis of the lungs. Fatty infiltration of the liver. Distended gallbladder with tiny stones. Bilateral renal cysts. Diverticular disease of the descending and sigmoid colon with marked thickening of the gil of the mid to distal descending colon with surrounding fat and pericolonic fluid consistent with severe acute diverticulitis. There is free fluid throughout the abdomen notably above the right lobe of the liver increased. There is a moderate amount of fluid in the pelvis. There is a small fat-containing left inguinal hernia On chart review it is evident that the patient 2 years ago had a cardiac stress test performed by Dr. Fabian Avila. That was abnormal and positive for exercise-induced ischemia inferiorly. The patient states that 10 years ago he had a thoracic aortic dissection repaired. He states that about a month ago he was reviewed at [facility] for that and it was felt to be stable. He 2 years ago had a TIA. He was placed on Xarelto therapy. Of great concern however is that within the past week because of fatigue and shortness of breath he saw his ext js developer at [facility] and was diagnosed as having acute congestive heart failure. By report his BNP was 6600. He states that he had some medication changes. He said that he did have an echocardiogram at this appointment. About 2 years ago he had a left chest pacemaker defibrillator placed. He denies ever having coronary stents. He states that his this is his third known episode of suspected diverticulitis. He has had 1 previous hospitalization for the same. He claims that [address] Ronni Colunga performed a colonoscopy demonstrating the diverticular disease but no other acute findings. He states that no one ever suggested that he needed surgery on his colon previously. He last took his Xarelto yesterday evening. He has not yet taken it today. He denies history of DVT He has had a history of bladder cancer. He claims that that was removed cystoscopically. He states that within the fairly recent past he has had a checkup at [place] and again was felt to be clear of that disease. He has had a previous history of tobacco use at 1/2 pack/day up until 10 years ago Past Medical History Past Medical History (Chronic Problems): Chronic Problems HTN (hypertension) (Chronic) Aortic disease (Chronic) Bladder cancer (Chronic) CVA (cerebral vascular accident) (Chronic) Allergies oxycodone [From Percocet] Allergy (Verified 07/20/20 18:26) Itching Home Medications: Ambulatory Orders Medication Instructions Recorded traZODone [Desyrel] 100 mg PO QHS PRN PRN 06/15/18 Hydrocodone Bitart/Apap 5-325 1 tab PO Q6H PRN PRN 3 Days #10 tab 07/20/20 [Roxie 5MG-325MG] Ondansetron [Zofran Odt] 4 mg PO Q8H PRN PRN #10 tab 07/20/20 Acebutolol HCl 100 mg PO BID 07/21/20 Amoxicillin/Potassium Clav 1 tab PO BID 07/21/20 [Augmentin 875-125 Tablet] Furosemide [Lasix] 20 mg PO DAILY 07/21/20 Losartan Potassium [Cozaar] 50 mg PO BID 07/21/20 Rivaroxaban [Xarelto] 20 mg PO DAILY 07/21/20 Surgical History: - - Aortic dissection repair, tonsillar abscess I&D. Psychiatric History: No pertinent psych hx Lives: Spouse/ Significant Other Smoking Status: Former smoker Alcohol: None Drugs: None - *Family History Maternal History Items: - - Patient notes a maternal family history of heart disease, hypertension, history of [place]. Paternal History Items: - - Patient notes a paternal family history of heart disease and hypertension. Review of Systems Constitutional: Reports: Anorexia, Malaise, Weakness, Fatigue. Denies: Fever Eyes: Denies: Blurred vision HEENT: Denies: Difficulty Swallowing Cardiovascular: Denies: Chest Pain Respiratory: Reports: Shortness of Breath. Denies: Cough, Sputum production Gastrointestinal: Reports: Abdominal Pain, Constipation, - - Acute change in bowel habits minimal intermittent stool with mucus. No documented bleeding. Denies: Melena Genitourinary: Denies: Dysuria Neurological: Denies: Focal weakness Psychiatric: Denies: Anxiety Endocrine: Denies: Change in Body Habitus Hematologic/ Lymphatic: Denies: Adenopathy Patient Problems: Active and Suspected Problems Acute diverticulitis (Acute) - Physical Exam Vitals/I&O's: Vital Signs Temp Pulse Resp BP Pulse Ox 97.9 F 60 20 H 108/66 92 07/21/20 21:46 07/21/20 21:46 07/21/20 21:46 07/21/20 21:46 07/21/20 21:46 Oxygen Delivery Method Room Air Weight: 152 lb 1.903 oz Body Mass Index (BMI) 22.4 Intake and Output for Last 24 Hours 07/19/20 07/20/20 07/21/20 23:59 23:59 23:59 Intake Total 100 / 100 Balance 100 / 100 General: Alert, - - Patient looks uncomfortable, HEENT: Atraumatic Oral: Dry Mucosa Neck: Supple, No JVD, Negative Carotid Bruits Lungs: Clear to auscultation, Normal air movement Cardiovascular: Regular rate, Regular Rhythm, - - Left anterior superior chest pacemaker defibrillator Abdomen: Bowel Sounds Present, - - Markedly tender to light palpation left lower quadrant with rebound and guarding. More moderate tenderness to palpation right lower quadrant with guarding. Nonrigid abdomen Extremities: No edema, No Calf Tenderness Skin: No rashes Musculoskeletal: No Tenderness to Palpation of Joints or Extremities Lymphatic: No Cervical, Supraclavicular, or Inguinal Adenopathy Neurological: - - Normal cognition Psych/Mental Status: Normal Affect Laboratory Results 07/21/20 17:15: WBC 21.8 H, RBC 6.26 H, Hgb 19.8 H*, Hct 60.1 H, MCV 96.0 H, MCH 31.6, MCHC 32.9, RDW Std Deviation 47.7 H, RDW Coeff of Edward 13.7, Plt Count 217, MPV 10.6, Immature Gran % (Auto) 0.600, Neut % (Auto) 88.2 H, Lymph % (Auto) 4.9 L, Sharkey % (Auto) 6.0, Eos % (Auto) 0.1, Baso % (Auto) 0.2, Absolute Neuts (auto) 19.2 H, Absolute Lymphs (auto) 1.06, Nucleated RBC % 0 07/21/20 17:15: Sodium 136, Potassium 4.5, Chloride 102, Carbon Dioxide 29.0, Anion Gap 5, BUN 17, Creatinine 1.40 H, Estim Creat Clear Calc 50.00, Est GFR (MDRD) Af Amer 65, Est GFR (MDRD) Non-Af 54 L, BUN/Creatinine Ratio 12.1, Glucose 136 H, Calcium 9.4, Total Bilirubin 1.30 H, AST 12 L, ALT 36, Alkaline Phosphatase 50, Total Protein 6.7, Albumin 3.1 L, Globulin 3.6, Albumin/Globulin Ratio 0.9, Lipase 54 L 07/21/20 22:13: PT Pending, INR Pending Current Medications Acetaminophen (Tylenol) 650 mg PO Q6H PRN PRN PRN Reason: Pain Score 1-10/Temp > 100.7 F Sodium Chloride () 1,000 mls @ 100 mls/hr IV .Q10H [facility] Last Admin: 07/21/20 22:36 Dose: 100 mls/hr Documented by: Famotidine 20 mg/ Sodium (Chloride) 10 mls @ 300 mls/hr IV Q12 [facility] Last Admin: 07/21/20 22:36 Dose: 300 mls/hr Documented by: Piperacillin Sod/Tazobactam (Sod 3.375 gm/ Sodium Chloride) 50 mls @ 12.5 mls/hr IV Q8 [facility] Last Admin: 07/21/20 22:36 Dose: 12.5 mls/hr Documented by: Losartan Potassium (Cozaar) 50 mg PO BID [facility] Morphine Sulfate () 2 mg IV Q3H PRN PRN PRN Reason: Pain Score 6-10/10 Last Admin: 07/21/20 22:04 Dose: 2 mg Documented by: Non-Formulary Medication (Acebutolol Hcl) 100 mg PO BID [facility] Ondansetron HCl (Zofran) 4 mg IV Q8H PRN PRN PRN Reason: NAUSEA/VOMITING Sodium Chloride () 10 - 40 ml IV UD PRN PRN Reason: SALINE FLUSH Trazodone HCl (Desyrel) 100 mg PO QHS PRN PRN PRN Reason: INSOMNIA Zolpidem Tartrate (Ambien (Generic)) 5 mg PO QHS PRN PRN PRN Reason: INSOMNIA Assessment/Plan All Active Problems Acute diverticulitis (Acute) 64-year-old gentleman who presents with a increasingly complicated problem. A reasonable diagnosis would be severe acute diverticulitis involving both the descending and sigmoid colon. Cannot exclude other etiology to colitis i.e. ischemic colitis. He is not having blood per rectum. He has a significant amount of free fluid in the abdomen. Etiology to this is not clear. There is no free air. His clinical examination at least at this point does not suggest perforation. Based upon his history of Xarelto therapy I suppose it is possible the fluid could be blood but less likely. Based upon his history of recently diagnosed with acute congestive heart failure and the previous known history of an abnormal stress test 2 years ago and the presence of a pacemaker defibrillator the fluid could represent ascitic fluid cardiac in origin. The patient is markedly hemoconcentrated and at significant risk for DVT. In addition to that he has a history of bladder cancer albeit instructed that he has been cleared of that disease this would potentially place him at slightly increased risk of DVT as well. The patient has had very severe colitis and needs to have his Xarelto held for potential emergency surgical intervention. He does have a degree of chronic renal failure. I will give 1 dose of Lovenox subcutaneously tonight. Pending the progress of his illness he may require ongoing treatment with subcu heparin pending evolution of his renal function. I will have him hold his Xarelto therapy until further evaluation can be performed. I will initiate utilization of sequential venous compression devices. I will encourage mobilization and the additional use of incentive spirometry Records regarding his recent visit to [facility] may be obtained particularly his echocardiogram. I will request a repeat BNP. Urology consultation locally recommend. He needs to be held strictly n.p.o. and at bowel rest. The degree of his inflammatory process is severe. Based upon the above information is not clear to me that he would be a surgical candidate but likely not a surgical candidate locally. At this moment I do not believe that he has an acute rigid abdomen although he is significantly tender. In a different situation he was received significant fluid bolusing however with his history of acute CHF this is likely not possible. Again: Cardiology consultation can help guide. I appreciate the opportunity of assisting with his surgical care. I will follow with you. I consider this patient a very high risk candidate. Kane Melendez M.D., F.A.C.S.
[2020-07-21 22:43] LABS: International Normalized Ratio 1.7
[2020-07-21] MEDS: Enoxaparin 40 MG/0.4 ML Syringe SC (22:50)
--- NOTE | 2020-07-21 23:12 | NURSING ---
Called lab to make sure they knew to draw a stat lactic acid level on this pt.
[2020-07-21 23:54] LABS: BNP,B-Type NATRIURETIC PEPTIDE 1184.5 pg/mL (0-100)
[2020-07-21 23:56] LABS: Lactic Acid 1.8 mmol/L (0.4-1.9)
[2020-07-22] VITALS (17 sets, daily range): BP systolic 95–125; BP diastolic 28–78; PULSE 58–63; RESP 18; TEMP 35.6–36.6; O2SAT 92–95
[2020-07-22] MEDS: CLARIFY ORDER 1 EACH NOTE (00:25)
[2020-07-22] MEDS: 0.9% Normal Saline 1,000 ML 100 ML IV (01:10)
[2020-07-22] MEDS: Morphine 2 MG/ML Syringe IV ×3 (01:10→07:26)
[2020-07-22] MEDS: Ondansetron 4 MG/2 ML Vial IV ×2 (03:37→12:42)
--- NOTE | 2020-07-22 05:57 | PCM.PN.SRG ---
Patient Problems: Active and Suspected Problems Acute diverticulitis (Acute) Subjective: Patient states that he is rather miserable. Pain is about the same as yesterday. No nausea or vomiting. BNP 1184 - Physical Exam Vitals/I&O's: Vital Signs Temp Pulse Resp BP Pulse Ox 97.7 F L 58 L 18 122/73 H 94 07/22/20 03:38 07/22/20 03:38 07/22/20 03:38 07/22/20 03:38 07/22/20 03:38 Oxygen Delivery Method Room Air Weight: 152 lb 1.903 oz Body Mass Index (BMI) 22.4 Intake and Output for Last 24 Hours 07/20/20 07/21/20 07/22/20 23:59 23:59 23:59 Intake Total 110 / 110 1306.67 / 1306.67 Output Total 100 / 100 Balance 110 / 110 1206.67 / 1206.67 Laboratory Results 07/21/20 17:15: WBC 21.8 H, RBC 6.26 H, Hgb 19.8 H*, Hct 60.1 H, MCV 96.0 H, MCH 31.6, MCHC 32.9, RDW Std Deviation 47.7 H, RDW Coeff of Edward 13.7, Plt Count 217, MPV 10.6, Immature Gran % (Auto) 0.600, Neut % (Auto) 88.2 H, Lymph % (Auto) 4.9 L, Baca % (Auto) 6.0, Eos % (Auto) 0.1, Baso % (Auto) 0.2, Absolute Neuts (auto) 19.2 H, Absolute Lymphs (auto) 1.06, Nucleated RBC % 0 07/21/20 17:15: Sodium 136, Potassium 4.5, Chloride 102, Carbon Dioxide 29.0, Anion Gap 5, BUN 17, Creatinine 1.40 H, Estim Creat Clear Calc 50.00, Est GFR (MDRD) Af Amer 65, Est GFR (MDRD) Non-Af 54 L, BUN/Creatinine Ratio 12.1, Glucose 136 H, Calcium 9.4, Total Bilirubin 1.30 H, AST 12 L, ALT 36, Alkaline Phosphatase 50, Total Protein 6.7, Albumin 3.1 L, Globulin 3.6, Albumin/Globulin Ratio 0.9, Lipase 54 L 07/21/20 17:15: B-Natriuretic Peptide 1184.5 H 07/21/20 22:13: PT 19.0 H, INR 1.7 07/21/20 23:23: Lactic Acid 1.8 Current Medications Acetaminophen (Tylenol) 650 mg PO Q6H PRN PRN PRN Reason: Pain Score 1-10/Temp > 100.7 F Sodium Chloride () 1,000 mls @ 100 mls/hr IV .Q10H [facility] Last Admin: 07/22/20 01:10 Dose: 100 mls/hr Documented by: Famotidine 20 mg/ Sodium (Chloride) 10 mls @ 300 mls/hr IV Q12 [facility] Last Infusion: 07/21/20 22:49 Dose: Infused Documented by: Piperacillin Sod/Tazobactam (Sod 3.375 gm/ Sodium Chloride) 50 mls @ 12.5 mls/hr IV Q8 [facility] Last Admin: 07/22/20 05:14 Dose: 12.5 mls/hr Documented by: Losartan Potassium (Cozaar) 50 mg PO BID [facility] Last Admin: 07/21/20 23:58 Dose: Not Given Documented by: Morphine Sulfate () 2 mg IV Q3H PRN PRN PRN Reason: Pain Score 6-10/10 Last Admin: 07/22/20 04:19 Dose: 2 mg Documented by: Non-Formulary Medication (Acebutolol Hcl) 100 mg PO BID [facility] Ondansetron HCl (Zofran) 4 mg IV Q8H PRN PRN PRN Reason: NAUSEA/VOMITING Last Admin: 07/22/20 03:37 Dose: 4 mg Documented by: Sodium Chloride () 10 - 40 ml IV UD PRN PRN Reason: SALINE FLUSH Trazodone HCl (Desyrel) 100 mg PO QHS PRN PRN PRN Reason: INSOMNIA Medical Necessity - Tobacco Use Smoking Status: Former smoker Assessment/Plan All Active Problems Acute diverticulitis (Acute) HISTORY OF PRESENT ILLNESS: ? ?is a 64 year old male.??The patient returns for follow secondary history of a nonischemic cardio myopathy with ejection fraction in the distant past quoted in the ICD implantation report at 32%. ?Prior to that the patient had a CVA with multiple lacunar infarcts with history demonstrating paroxysmal atrial fibrillation. ?He is on oral anticoagulation with Xarelto. ?He has had an abdominal AAA and a total replacement of his aortic arch after a type A dissection. ?2 years ago he underwent cardiac catheterization which demonstrated minimal coronary disease. ?Recently he underwent repeat evaluation with a CT scan of his aorta and which time the left ventricle appeared dilated and weekend. ?He therefore underwent echocardiogram which now demonstrates an ejection fraction of 20% with moderately severe aortic insufficiency. ?His aortic root at the sinuses of Valsalva is markedly dilated at 4.8 cm but stable. ?Or the past few months he has had increasing problems with dyspnea, orthopnea and possible PND. ?He has fatigue and poor energy. ?He denies chest discomfort, palpitations, near-syncope or syncope. ?His accompanies him at his visit today The patient has symptoms that would suggest potential cardiac decompensation with early acute systolic heart failure. ?We have therefore increased his losartan to a full 50 mg tablet twice daily. ?He did have multiple cysts on his kidneys which are worsened on a recent scan. ?Creatinine however is normal. ?We will initiate low-dose diuresis with 20 mg of Lasix 3 times weekly. ?We will have close clinical follow-up in the next 2-3 weeks time and perform a BNP and BMP prior to that visit. ?We may need to consider evaluation of his aortic insufficiency with PARVIZ. ?We would ideally like him to be on guideline directed optimal medical therapy prior to such. ?We may need to change his Sectral to Toprol. ?We discussed fluid and sodium restriction as well as daily weights with the patient. ?He is to call us or present to the hospital should there be any minimal change for the worse. The above represents evaluation and discussion on July 12, 2020 per the patient's hand tufter from [facility] Dr Reid. I recommend cardiology consultation. Fortunately today the patient's clinical exam of his abdomen is no worse applied possibly slightly improved. The patient would not be a candidate for surgical intervention. I will keep him strictly n.p.o. until cardiology can see the patient in case additional testing is requested. The patient currently is on 100 cc an hour of normal saline. The fluid within his abdomen likely is secondary to his congestive failure. Ongoing medical maximization of his care recommended. The patient could be initiated on sips of noncarbonated clear liquids pending cardiology and medicine review. He received 1 dose of Lovenox subcutaneously last evening. His Xarelto which was prescribed for the lacunar infarcts secondary to atrial fibrillation is currently held. He is at increased risk for DVT Kane Melendez M.D., F.A.C.S.
[2020-07-22] MEDS: Acetaminophen 325 MG Tablet 650 MG PO (06:24)
[2020-07-22 06:36] LABS: Absolute Lymphocyte Count 1.46 X10^3/uL (0.83-4.51); Absolute Neutrophil Count 25.5 X10^3/uL (2.0-7.7); Basophil# 0.08 X10^3/uL; Basophil% 0.3 % (0-1); Eosinophil# 0.06 X10^3/uL; Eosinophils% 0.2 % (0-5); Lymphocyte # 1.46 X10^3/ul (4.0); Lymphocyte % 4.9 % (19-41); Mean Corp Hgb Conc 32.2 g/dL (32-36); Mean Corpuscular Volume 96.4 fL (80-94); Mean Platelet Vol. 10.8 fl (6.2-12.0); Monocyte# 2.05 X10^3/uL; Monocyte% 6.9 % (0-10); NRBC Flagged by Analyzer 0 % (0-5); Neutrophil # 25.54 X10^3/uL (2.7-7.7); Neutrophil % 85.9 % (47-70); POSITIVE DIFFERENTIAL YES; POSITIVE MORPHOLOGY YES; Platelet Count 238 K/mm3 (150-450); RBC Distribution Width CV 14.1 % (11.6-14.6); RBC Distribution Width SD 48.9 fl (35.1-43.9); Red Blood Count 7.42 M/mm3 (4.6-6.2); White Blood Count 29.7 K/mm3 (4.4-11.0)
[2020-07-22 06:38] LABS: Differential Indicated SCAN CRITERIA MET; Hematocrit 71.5 % (40-54)
[2020-07-22 07:13] LABS: ALB/GLOB Ratio 0.7 RATIO (0.9-2.4); AST(SGOT) 60 U/L (15-37); Alanine Aminotransfer ALT/SGPT 69 U/L (16-61); Albumin, Serum 2.5 g/dL (3.2-5.0); Alkaline Phosphatase 50 U/L (45-117); Anion Gap 12 (5-15); BUN 28 mg/dL (7-18); BUN/Creat Ratio 14.1 RATIO (10-20); Calcium,Total 8.9 mg/dL (8.5-10.1); Chloride 100 mmol/L (98-107); Creatinine, Serum 1.98 mg/dL (0.70-1.30); EST Glomerular Filtration Rate 36 mL/min (>60); Est Glom Filt Rate - Afr Amer 44 mL/min (>60); Globulin 3.7 g/dL (2.2-4.2); Glucose 123 mg/dL (74-106); Potassium 4.7 mmol/L (3.5-5.1); Protein, Total 6.2 g/dL (6.4-8.2); Sodium Level 133 mmol/L (136-145)
--- NOTE | 2020-07-22 07:20 | PN_ITS ---
Progress Note Abnormal CBC. I have personally spoken with Dr. Gruber. I do not feel comfortable pursuing ongoing surgical treatment locally. Cardiology consul tation will be obtained urgently. The patient should be considered for IV heparin anticoagulation. Hopeful tertiary referral can be achieved. Kane Melendez M.D., F.A.C.S. STROKE Vital Signs/Narrative: Vital Signs Temp Pulse Resp BP Pulse Ox 07/22/20 03:38 97.7 F L 58 L 18 122/73 H 94
[2020-07-22 07:37] LABS: Differential Comment SCANNED
--- NOTE | 2020-07-22 07:53 | NURSING ---
faxed over release of medical records to [facility] havent received anything back at this time
--- NOTE | 2020-07-22 08:14 | PCM.HOSP.N ---
Hospitalist Note Seen and examined. Patient denies any improvement of pain. His pain is mainly in the left side of abdomen, intermittent colicky does not remit completely in between pain episodes. Patient looks very dry, oral mucosa is dry. Labs are suggestive of hemoconcentration, hematocrit jumped up from 20,000-23,000, BUN/creatinine also went up from 17/1 0.4-20 8/1.98. ALT AST elevated. Patient blood pressure and heart rate are controlled. No hypoxia or tachypnea. In view of significant history of cardiovascular disease including type a dissection status post graft repair in 2009, significant nonischemic cardiomyopathy with EF 20% with moderately severe aortic insufficiency s/p AICD. About 2 weeks ago he had a CT scan of his aorta which showed LV dilated and weak. Aortic root at sinuses of Valsalva markedly dilated at 4.8 cm but stable. Patient said his risk control representative Dr. Sheehan said his aortic graft is stable. Patient is on losartan 50 mg twice daily. the patient was discussed with the surgeon Dr. Kane Melendez, risk control representative Dr. Avila, and Dr. Guadarrama. Patient is also on acebutolol which is changed to metoprolol, appropriate to his clinical and hemodynamic status, heart rate 50/min and blood pressure 122/73 Physical General: Alert, Oriented x3, Cooperative HEENT: Atraumatic, PERRLA, EOMI, Normocephalic Oral: No Gingival or Mucosal Lesions/ Ulcerations Neck: Supple, No JVD, Negative Carotid Bruits Lungs: Air entry diminished in bilateral lung bases. No crepitation/rhonchi Cardiovascular: Regular rate, Regular Rhythm, Normal S1, Normal S2, early diastolic murmur grade 3/6 over aortic area. Left subclavian AICD. Surgical scar of type a dissection repair. Abdomen: Bowel Sounds sluggish. Tenderness and guarding present over left side of abdomen. No palpable mass. : No renal angle tenderness. No suprapubic tenderness. Urine output 100, oliguric. Positive fluid balance of 1300 mL. Extremities: No edema, Capillary Refill Less than 3 Seconds Skin: No rashes, No breakdown Musculoskeletal: No Tenderness to Palpation of Joints or Extremities Neurological: Cranial nerves II-XII grossly intact, Deep Tendon Reflexes 2+/4 and Symmetrical, Neuro grossly intact Psych/Mental Status: Normal Affect, Appropriate. At home his Xarelto is hold. He was on Xarelto for history of A. fib and history of ischemic infarct 2018. EKG in the ER shows sinus rhythm at 65 bpm with moderate LVH. Due to increased perioperative risk in view of significant cardiovascular disease and possible requirement of surgery for recurrent acute severe diverticulitis with reactive fluid around the distal descending colon sigmoid colon, patient requires in tertiary care center. I discussed with the patient regarding her transfer and he agreed for [facility]. I called transfer station attendant and transfer process in progress
--- NOTE | 2020-07-22 08:19 | PCA ---
recieved records from [facility]
[2020-07-22] MEDS: Metoclopramide 10 MG/2 ML Vial 5 MG IV (08:49)
[2020-07-22] MEDS: HYDROmorphone 1 MG/ML Syringe IV ×2 (08:50→12:41)
[2020-07-22] MEDS: 0.9% Saline Lock 10 ML Syringe IV ×3 (08:53→16:55)
[2020-07-22] MEDS: Lactated Ringers 500 ML 999 ML IV (08:56)
[2020-07-22] MEDS: Losartan Potassium 50 MG Tablet PO (09:05)
[2020-07-22] MEDS: Metoprolol Tartrate 25 MG Tablet 12.5 MG PO (09:05)
[2020-07-22] MEDS: Famotidine 200 MG/20 ML MDV 20 MG in 0.9% Normal Saline (Pres. free 8 ML 300 MG IV (10:18)
--- NOTE | 2020-07-22 10:49 | NURSING ---
into room as alarm vtach on monitor but vent. paced. hr 100's pt laying in bed denies all symptoms. denies change in abd pain at present. pt states has had this before. vs machine attached and hr back down into 60's. primary rn to bedside.
[2020-07-22] MEDS: Lactated Ringers 1,000 ML 150 ML IV (12:41)
--- NOTE | 2020-07-22 12:57 | NURSING ---
transport center for [facility] called, awaRe they do not have a bed at this time but state should have one in a couple hours. Primary Rn updated.
--- NOTE | 2020-07-22 13:26 | NURSING ---
belt and link shop supervisor notified of orders for transfer to ICU.
--- NOTE | 2020-07-22 13:28 | NURSING ---
[facility] transfer center Manisha update on pt's status of transferring to ICU. Aware per Manisha there is not a bed available at this time on the regular floor or the ICU and she would call ICU for an update in a little bit.
--- NOTE | 2020-07-22 13:34 | NURSING ---
bed 5 icu per musical instrument supervisor. aware per [facility] ICU will call for report. Primary RN also updated on icu bed and phone call to [facility] transfer center
--- NOTE | 2020-07-22 13:34 | NURSING ---
bed received ICU5 from Nursing supervisor pit and auxiliaries- states ICU will call for report
[2020-07-22] MEDS: Lactated Ringers 1,000 ML 999 ML IV (14:02)
[2020-07-22 14:35] LABS: Hemoglobin 21.4 g/dL (13.0-16.5)
[2020-07-22 14:36] LABS: Hematocrit 67.7 % (40-54)
--- NOTE | 2020-07-22 15:05 | CON.PCM_ITS ---
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 He also has elevated LFTs, worsening renal function and significantly elevated hematocrit. Patient also has cardiomyopathy. He states that he follows with Dr. Neely at [facility] and has had coronary angiography in the past which has not revealed any significant CAD. He denies any chest pain at this time. He does have some orthopnea. Past Medical History Allergies/Adverse Reactions: Allergies oxycodone [From Percocet] Allergy (Verified 07/20/20 18:26) Itching Home Medications: Ambulatory Orders Medication Instructions Recorded traZODone [Desyrel] 100 mg PO QHS PRN PRN 06/15/18 Hydrocodone Bitart/Apap 5-325 1 tab PO Q6H PRN PRN 3 Days #10 tab 07/20/20 [[place] 5MG-325MG] Ondansetron [Zofran Odt] 4 mg PO Q8H PRN PRN #10 tab 07/20/20 Acebutolol HCl 100 mg PO BID 07/21/20 Amoxicillin/Potassium Clav 1 tab PO BID 07/21/20 [Augmentin 875-125 Tablet] Furosemide [Lasix] 20 mg PO DAILY 07/21/20 Losartan Potassium [Cozaar] 50 mg PO BID 07/21/20 Rivaroxaban [Xarelto] 20 mg PO DAILY 07/21/20 Past Medical History (Chronic Problems): Chronic Problems HTN (hypertension) (Chronic) Aortic disease (Chronic) Bladder cancer (Chronic) CVA (cerebral vascular accident) (Chronic) Surgical History: - - Aortic dissection repair, tonsillar abscess I&D. Psychiatric History: No pertinent psych hx - *Family History Maternal History Items: - - Patient notes a maternal family history of heart disease, hypertension, history of [place]. Paternal History Items: - - Patient notes a paternal family history of heart disease and hypertension. Lives: Spouse/ Significant Other Smoking Status: Former smoker Alcohol: None Drugs: None Review of Systems - Review of Systems Cardiovascular: Denies: Chest Discomfort Respiratory: Denies: Cough Genitourinary: Denies: Dysuria Skin: Denies: Rash Neurological: Denies: Dizziness Endocrine: Denies: Heat Intolerance Objective: Vital Signs Temp Pulse Resp BP Pulse Ox 97.8 F 60 18 98/57 L 92 07/22/20 14:40 07/22/20 14:49 07/22/20 14:40 07/22/20 14:49 07/22/20 14:49 Oxygen Delivery Method Room Air Weight: 152 lb 1.903 oz Body Mass Index (BMI) 22.4 Intake and Output for Last 24 Hours 07/20/20 07/21/20 07/22/20 23:59 23:59 23:59 Intake Total 110 / 110 4236.29 / 4236.29 Output Total 140 / 140 Balance 110 / 110 4096.29 / 4096.29 General: Awake, Alert, Oriented x 3 HEENT: Atraumatic Oral: Moist Mucosa Neck: Supple Lungs: Clear to auscultation Extremities: No edema Skin: No Rashes Psych/Mental Status: Appropriate 07/21/20 17:15: WBC 21.8 H, RBC 6.26 H, Hgb 19.8 H*, Hct 60.1 H, MCV 96.0 H, MCH 31.6, MCHC 32.9, Plt Count 217, MPV 10.6, Immature Gran % (Auto) 0.600, Neut % (Auto) 88.2 H, Lymph % (Auto) 4.9 L, Rich % (Auto) 6.0, Eos % (Auto) 0.1, Baso % (Auto) 0.2, Absolute Neuts (auto) 19.2 H, Nucleated RBC % 0 07/21/20 17:15: Sodium 136, Potassium 4.5, Chloride 102, Carbon Dioxide 29.0, Anion Gap 5, BUN 17, Creatinine 1.40 H, Est GFR (MDRD) Af Amer 65, Est GFR (MDRD) Non-Af 54 L, BUN/Creatinine Ratio 12.1, Glucose 136 H, Calcium 9.4, Total Bilirubin 1.30 H 07/21/20 17:15: B-Natriuretic Peptide 1184.5 H 07/21/20 22:13: PT 19.0 H, INR 1.7 07/21/20 23:23: Lactic Acid 1.8 07/22/20 05:56: WBC 29.7 H, RBC 7.42 H, Hgb 23.0 H*, Hct 71.5 H, MCV 96.4 H, MCH 31.0, MCHC 32.2, Plt Count 238, MPV 10.8, Immature Gran % (Auto) 1.800 H, Neut % (Auto) 85.9 H, Lymph % (Auto) 4.9 L, Rich % (Auto) 6.9, Eos % (Auto) 0.2, Baso % (Auto) 0.3, Absolute Neuts (auto) 25.5 H, Nucleated RBC % 0 07/22/20 05:56: Sodium 133 L, Potassium 4.7, Chloride 100, Carbon Dioxide 21.0, Anion Gap 12, BUN 28 H, Creatinine 1.98 H, Est GFR (MDRD) Af Amer 44 L, Est GFR (MDRD) Non-Af 36 L, BUN/Creatinine Ratio 14.1, Glucose 123 H, Calcium 8.9, Total Bilirubin 1.30 H 07/22/20 14:26: Hgb 21.4 H*, Hct 67.7 H Rhythm: EKG: ECHO: Stress Test: Cardiac Cath: PCI: CT Surgery: Holter monitor: EPS: PPM: CXR: Chest CT Scan: Assessment/Plan 1. Cardiomyopathy: Patient appears to have nonischemic cardiomyopathy. At this point he is compensated from the standpoint. Because of his hemoconcentration he is on IV fluids which is reasonable at this time. Explained to the patient that his his orthopnea gets worse or if he develops shortness of breath he should let us know. Because of his low EF and elevated BNP he will need close monitoring from a cardiac standpoint. He is being transferred to [facility] due to his diverticulitis with multiorgan dysfunction.
--- NOTE | 2020-07-22 15:51 | PCA ---
[facility] called with bed assignment of 5217 bed 2 with call report to nurse number at [phone]. this table top tile setter called physicians ambulance to transport patient and their eta was 15 to 20 min. nurse and doctor notified
--- NOTE | 2020-07-22 16:35 | NURSING ---
pt transported with ivf/iv antibiotic infusing.
--- NOTE | 2020-07-22 16:59 | DS.PCM_ITS ---
Discharge Date and Diagnosis - Problem List Patient Problems: Active and Suspected Problems Acute diverticulitis (Acute) Date of Admission: 07/21/20 Date of Discharge: 07/22/20 - Primary Discharge Diagnosis Acute Problems: Active Problems Acute diverticulitis (Acute) Acute on recurrent severe left-sided, descending and sigmoid colon diverticulitis - Secondary Discharge Diagnosis Chronic Problems: Chronic Problems HTN (hypertension) (Chronic) Aortic disease (Chronic) Bladder cancer (Chronic) CVA (cerebral vascular accident) (Chronic) Hospital Course and Treatment Summary of Care Provided: [] This is a 64 years old male patient with significant history of type a aortic dissection status post aortic graft in 2009, significant nonischemic cardiomyopathy EF 20% status post AICD, moderately severe aortic insufficiency and MR was admitted with severe left sided abdominal pain for 3 days along with nausea. Patient denies any constipation or diarrhea or GI bleed. CT abdomen showed diverticular disease of distal descending and sigmoid colon with infiltration in mesocolon and moderate amount of reactive fluid in pelvis consistent with acute severe diverticulitis. Patient having 3-4 diverticulitis attack in the last 2 to 3 years. Last one was in September 2019 #1 acute diverticulitis of the distal descending and sigmoid colon Patient had colonoscopy [address] scan abdomen and pelvis reviewed, no abscess, revealed significant inflammatory changes. No evidence of sepsis or sepsis, patient afebrile, no tachycardia. Patient was managed with IV fluid, IV morphine, Dilaudid, IV Zosyn and IV Pepcid. General surgery consult, Dr. Kane Melendez reviewed, discussed and appreciated. In view of increased perioperative risk and recurrent nature of diverticulitis, he suggested transfer to tertiary care center. 2. Severe hypovolemia and hemoconcentration secondary to diverticulitis: I think patient had third spacing along with volume contraction as per CT scan. Patient resuscitated with IV fluid Ringer lactate. His urine output improved. H&H went high 23/71 which decreased to 21.4/67 after volume resuscitation. #2 acute kidney injury: Secondary to #1. Baseline creatinine is within normal limits. Monitor kidney function, electrolytes, intake and output. #3 hypertension: Blood pressure stable, continue losartan and acebutolol. Acebutolol was changed to metoprolol as per hospital formulary. #4 Cardiovascular conditions: Type A aortic dissection status post aortic grafting 2009, severe nonischemic heart failure EF 20% status post AICD, moderately severe TR and 3+ MR: Patient had recent echo from [facility] which was reviewed. He also had CT scan about 2 weeks ago which showed aortic root sinus at Valsalva markedly dilated 4.8 cm and but is stable. Patient said his assistant manager bilingual Dr. Neely said his aortic graft is stable. Patient is on losartan 50 mg twice daily. the patient was discussed with the surgeon Dr. Kane Melendez, assistant manager bilingual Dr. Avila, and Dr. Guadarrama. #5 history of bladder cancer: Stable, in remission. #6 history of CVA/recurrent TIAs: Stable, no complaints, continue Xarelto. #7 DVT prophylaxis: Continue Xarelto. Transfer [facility] to [facility] was called. Discussed with the program coordinator for residence life and patient accepted by Dr. Romero, surgeon. Patient transferred to [facility] in hemodynamically stable condition. Total time of the visit including total time spent in counseling or coordination of care, (more than 50% of the total time, spent in obtaining medical information from nurses and other ancillary care providers), discussion with consultants, review of labs and imaging is 60 minutes. Clinical Impression(s) from Imaging Studies Abdomen/Pelvis CT 07/21/20 17:35 IMPRESSION: Diverticular disease of the distal descending and sigmoid colon in association with severe acute diverticulitis but no evidence for peridiverticular abscess. Increasing inflammatory changes in the fluid in the abdomen and pelvis since prior exam Patient Problems: Active and Suspected Problems Acute diverticulitis (Acute) Objective: Patient heart rate and blood pressure was good in the morning, systolic 122 but dropped to 96/28 after giving Dilaudid. Patient was given bolus of Ringer lactate 1 L bolus over 2 hours and blood pressure recovered. Most recent 119/74. Patient does not have symptoms of dizziness, lightheadedness, shortness of breath, chest pressure. His abdominal pain is well controlled. Dilaudid dose decreased to 0.5 mg every 4 hourly as needed. Physical exam Physical General: Alert, Oriented x3, Cooperative HEENT: Atraumatic, PERRLA, EOMI, Normocephalic Oral: No Gingival or Mucosal Lesions/ Ulcerations Neck: Supple, No JVD, Negative Carotid Bruits Lungs: Air entry diminished in bilateral lung bases. No crepitation/rhonchi Cardiovascular: Regular rate, Regular Rhythm, Normal S1, Normal S2, early diastolic murmur grade 3/6 over aortic area. Left subclavian AICD. Surgical scar of type a dissection repair. Abdomen: Bowel Sounds sluggish. Tenderness and guarding present over left side of abdomen. No palpable mass. : No renal angle tenderness. No suprapubic tenderness. Intake and output 4.3 L / 140 mL along with 3 voiding of urine prior to Jones catheterization. Extremities: No edema, Capillary Refill Less than 3 Seconds Skin: No rashes, No breakdown Musculoskeletal: No Tenderness to Palpation of Joints or Extremities Neurological: Cranial nerves II-XII grossly intact, Deep Tendon Reflexes 2+/4 and Symmetrical, Neuro grossly intact Psych/Mental Status: Normal Affect, Appropriate. - Physical Exam Vitals/I&O's: Vital Signs Temp Pulse Resp BP Pulse Ox 96.1 F L 63 18 117/65 92 07/22/20 08:46 07/22/20 08:46 07/22/20 08:46 07/22/20 08:46 07/22/20 08:46 Oxygen Delivery Method Room Air Weight: 152 lb 1.903 oz Body Mass Index (BMI) 22.4 Intake and Output for Last 24 Hours 07/20/20 07/21/20 07/22/20 23:59 23:59 23:59 Intake Total 110 / 110 1306.67 / 1306.67 Output Total 100 / 100 Balance 110 / 110 1206.67 / 1206.67 Laboratory Results 07/21/20 17:15: WBC 21.8 H, RBC 6.26 H, Hgb 19.8 H*, Hct 60.1 H, MCV 96.0 H, MCH 31.6, MCHC 32.9, RDW Std Deviation 47.7 H, RDW Coeff of Edward 13.7, Plt Count 217, MPV 10.6, Immature Gran % (Auto) 0.600, Neut % (Auto) 88.2 H, Lymph % (Auto) 4.9 L, [place] % (Auto) 6.0, Eos % (Auto) 0.1, Baso % (Auto) 0.2, Absolute Neuts (auto) 19.2 H, Absolute Lymphs (auto) 1.06, Nucleated RBC % 0 07/21/20 17:15: Sodium 136, Potassium 4.5, Chloride 102, Carbon Dioxide 29.0, Anion Gap 5, BUN 17, Creatinine 1.40 H, Estim Creat Clear Calc 50.00, Est GFR (MDRD) Af Amer 65, Est GFR (MDRD) Non-Af 54 L, BUN/Creatinine Ratio 12.1, Glucose 136 H, Calcium 9.4, Total Bilirubin 1.30 H, AST 12 L, ALT 36, Alkaline Phosphatase 50, Total Protein 6.7, Albumin 3.1 L, Globulin 3.6, Albumin/Globulin Ratio 0.9, Lipase 54 L 07/21/20 17:15: B-Natriuretic Peptide 1184.5 H 07/21/20 22:13: PT 19.0 H, INR 1.7 07/21/20 23:23: Lactic Acid 1.8 07/22/20 05:56: WBC 29.7 H, RBC 7.42 H, Hgb 23.0 H*, Hct 71.5 H, MCV 96.4 H, MCH 31.0, MCHC 32.2, RDW Std Deviation 48.9 H, RDW Coeff of Edward 14.1, Plt Count 238, MPV 10.8, Immature Gran % (Auto) 1.800 H, Neut % (Auto) 85.9 H, Lymph % (Auto) 4.9 L, [place] % (Auto) 6.9, Eos % (Auto) 0.2, Baso % (Auto) 0.3, Absolute Neuts (auto) 25.5 H, Absolute Lymphs (auto) 1.46, Nucleated RBC % 0, Differential Comment SCANNED, Diff Path Review February07/22/20 05:56: Sodium 133 L, Potassium 4.7, Chloride 100, Carbon Dioxide 21.0, Anion Gap 12, BUN 28 H, Creatinine 1.98 H, Estim Creat Clear Calc 36.30, Est GFR (MDRD) Af Amer 44 L, Est GFR (MDRD) Non-Af 36 L, BUN/Creatinine Ratio 14.1, Glucose 123 H, Calcium 8.9, Total Bilirubin 1.30 H, AST 60 H, ALT 69 H, Alkaline Phosphatase 50, Total Protein 6.2 L, Albumin 2.5 L, Globulin 3.7, Albumin/Globulin Ratio 0.7 L Current Medications Acetaminophen (Tylenol) 650 mg PO Q6H PRN PRN PRN Reason: Pain Score 1-10/Temp > 100.7 F Last Admin: 07/22/20 06:24 Dose: 650 mg Documented by: Hydromorphone HCl (Dilaudid Inj) 1 mg IV Q3H PRN PRN PRN Reason: Pain Score 6-10/10 Famotidine 20 mg/ Sodium (Chloride) 10 mls @ 300 mls/hr IV Q12 [facility] Last Infusion: 07/21/20 22:49 Dose: Infused Documented by: Piperacillin Sod/Tazobactam (Sod 3.375 gm/ Sodium Chloride) 50 mls @ 12.5 mls/hr IV Q8 [facility] Last Admin: 07/22/20 05:14 Dose: 12.5 mls/hr Documented by: Lactated Ringer's () 1,000 mls @ 150 mls/hr IV .Q6H40M [facility] Stop: 07/22/20 15:01 Losartan Potassium (Cozaar) 50 mg PO BID [facility] Last Admin: 07/21/20 23:58 Dose: Not Given Documented by: Metoclopramide HCl (Reglan) 5 mg IV Q6H PRN PRN PRN Reason: nausea/vomting Metoprolol Tartrate (Lopressor (Beta Pawel)) 12.5 mg PO BID [facility] Morphine Sulfate () 2 mg IV Q3H PRN PRN PRN Reason: Pain Score 4-5/10 Ondansetron HCl (Zofran) 4 mg IV Q8H PRN PRN PRN Reason: NAUSEA/VOMITING Last Admin: 07/22/20 03:37 Dose: 4 mg Documented by: Sodium Chloride () 10 - 40 ml IV UD PRN PRN Reason: SALINE FLUSH Trazodone HCl (Desyrel) 100 mg PO QHS PRN PRN PRN Reason: INSOMNIA Home Medications: Medications to take at Discharge traZODone [Desyrel] 100 mg PO QHS PRN PRN 06/15/18 Hydrocodone Bitart/Apap 5-325 [[place] 5MG-325MG] 1 tab PO Q6H PRN PRN 3 Days #10 tab 07/20/20 Ondansetron [Zofran Odt] 4 mg PO Q8H PRN PRN #10 tab 07/20/20 Acebutolol HCl 100 mg PO BID 07/21/20 Amoxicillin/Potassium Clav [Augmentin 875-125 Tablet] 1 tab PO BID 07/21/20 Furosemide [Lasix] 20 mg PO DAILY 07/21/20 Losartan Potassium [Cozaar] 50 mg PO BID 07/21/20 Rivaroxaban [Xarelto] 20 mg PO DAILY 07/21/20 Primary Care Physician: Luis Manuel Escamilla MD [Primary Care Provider] - Medical Necessity - Tobacco Use Smoking Status: Former smoker Meaningful Use Info Meaningful Use Diagnoses (Choose all that apply): None applicable Inpatient E&M: 31398 Disch Hosp
[2020-07-23 12:20] LABS: Pathologist Review Reviewed
== END 2020-07-22 17:07 | disposition short-term general hospital (02) | DRG 391 ==
LOC: ED 16:51 → MS3 20:40
PROVIDERS: Surgery; Admitting Provider Hospitalist; Emergency Provider Emergency Medicine; PCP Family Medicine; Visit Provider Internal Medicine
DX: K57.32 Diverticulitis of large intestine without perforation or abscess without bleeding (principal); I11.0 Hypertensive heart disease with heart failure; I50.21 Acute systolic (congestive) heart failure; N17.9 Acute kidney failure, unspecified; E86.1 Hypovolemia; I42.8 Other cardiomyopathies; I48.0 Paroxysmal atrial fibrillation; Z79.01 Long term (current) use of anticoagulants; Z79.899 Other long term (current) drug therapy; Z86.73 Personal history of transient ischemic attack (TIA), and cerebral infarction without residual deficits; Z85.51 Personal history of malignant neoplasm of bladder; Z87.891 Personal history of nicotine dependence; Z95.810 Presence of automatic (implantable) cardiac defibrillator
CPT/HCPCS: 36415; 74177; 80053; 83605; 83690; 83880; 85014; 85018; 85025; 85610; 97802; 99251; 99284; J7030; J7050; J7120; Q9967; A4216; G0463; J2405; J3490